=== PATIENT | male | born 1975 | race Caucasian/White ===

== ENCOUNTER 2016-12-23 11:21 | Emergency (ER) | payer OTHER, BC ==
[~2016-12-23] VITALS: Ht 182.9 cm; Wt 92.7 kg
[2016-12-23 11:21] VITALS: TEMP 36.7; Ht 182.9 cm; Wt 92.7 kg
--- NOTE | 2016-12-23 12:39 | DIAGNOSTIC IMAGING REPORT ---
LEFT ANKLE MIN 3 VIEWS ROUTINE, LEFT FOOT MIN 3 VIEWS ROUTINE HISTORY: 41 years-old Male left leg and foot pain, injury acute left lower extremity pain status post fall. Initial exam. COMPARISON: Left knee radiographs of same day TECHNIQUE: 3 views of the left foot and 3 views of the left ankle. FINDINGS: ANKLE: There is no acute fracture, dislocation or significant degenerative changes. There is mild spurring of both the medial and lateral malleoli inferiorly. No osteochondral defect. Mild soft tissue swelling is noted circumferentially about the ankle. Mild spurring of the calcaneus is seen within the expected regions of the plantar and Achilles insertion sites. FOOT: There is bony fusion of the fifth DIP joint. Mild first MTP joint degenerative changes noted. No acute fracture or dislocation. Negative for opaque foreign body. IMPRESSION: 1. No acute fracture or dislocation of the left foot or ankle. 2. Small enthesophytes about the calcaneus incidentally noted. 3. Mild degenerative changes about the first MTP joint. The above report was generated using voice recognition software. It may contain grammatical, syntax or spelling errors. Electronically signed by: Barrett Nuñez M.D. 12/23/2016 12:38 PM Dictated Date/Time: 12/23/2016 12:34 PM
--- NOTE | 2016-12-23 12:41 | DIAGNOSTIC IMAGING REPORT ---
LEFT KNEE 3 VIEWS HISTORY: 41 years-old Male left leg and foot pain, injury acute left knee pain status post fall. Initial exam. COMPARISON: None available. TECHNIQUE: 3 views of the left knee. FINDINGS: Mild medial compartment joint space narrowing is noted. There is minimal spurring of the marginal patella. There is no acute fracture or dislocation. Small joint effusion is noted. Negative for opaque foreign body. There is mild medial soft tissue swelling. IMPRESSION: 1. Small joint effusion and mild medial soft tissue swelling without acute fracture. 2. Minimal degenerative changes about the knee. The above report was generated using voice recognition software. It may contain grammatical, syntax or spelling errors. Electronically signed by: Barrett Nuñez M.D. 12/23/2016 12:39 PM Dictated Date/Time: 12/23/2016 12:38 PM
--- NOTE | 2016-12-23 13:08 | EMERGENCY ROOM VISIT NOTE ---
History First contact with patient: 11:25 Chief Complaint: LEG PAIN,LEG INJURY Stated Complaint: LEG AND FOOT PAIN History of Present Illness The patient is a 41 year old male who presents to the Emergency Room with complaints of left knee, ankle and foot pain. The patient states that at work last night, he slipped on melted ice and did a split. He complains of left knee pain, left ankle pain and pain in the left big toe. He has been able to bear weight. He rates his discomfort an 8/10. The patient has not used ice or any medications. He rates his discomfort an 8/10. He denies previous injuries to the leg. He denies numbness or weakness. Review of Systems A complete 6 point review of systems was reviewed with the patient with pertinent positives and negatives as per history of present illness. All else were negative. Social History Smoking Status: Former Smoker Current/Historical Medications No Active Prescriptions or Reported Meds Physical Exam Vital Signs Date Time Temp Pulse Resp B/P (MAP) Pulse Ox O2 Delivery O2 Flow Rate FiO2 12/23/16 13:13 98 18 156/98 94 12/23/16 11:21 36.7 85 16 167/91 98 Room Air Physical Exam VITALS: Vitals are noted on the nurse's note and reviewed by myself. Vital signs stable. GENERAL: This is a 41-year-old male, in no acute distress, nondiaphoretic, well- developed well-nourished. SKIN: No ecchymosis, edema or abrasions. MUSCULOSKELETAL: There is tenderness to palpation of the medial left knee. Full range of motion of the knee. Tenderness to palpation along the first metatarsal. Dorsalis pedis pulse 2+. NEURO: Patient was alert and oriented to person place and time. Normal sensation to light and sharp touch. Medical Decision & Procedures ER Provider Diagnostic Interpretation: LEFT KNEE 3 VIEWS FINDINGS: Mild medial compartment joint space narrowing is noted. There is minimal spurring of the marginal patella. There is no acute fracture or dislocation. Small joint effusion is noted. Negative for opaque foreign body. There is mild medial soft tissue swelling. IMPRESSION: 1. Small joint effusion and mild medial soft tissue swelling without acute fracture. 2. Minimal degenerative changes about the knee. LEFT ANKLE MIN 3 VIEWS ROUTINE, LEFT FOOT MIN 3 VIEWS ROUTINE FINDINGS: ANKLE: There is no acute fracture, dislocation or significant degenerative changes. There is mild spurring of both the medial and lateral malleoli inferiorly. No osteochondral defect. Mild soft tissue swelling is noted circumferentially about the ankle. Mild spurring of the calcaneus is seen within the expected regions of the plantar and Achilles insertion sites. FOOT: There is bony fusion of the fifth DIP joint. Mild first MTP joint degenerative changes noted. No acute fracture or dislocation. Negative for opaque foreign body. IMPRESSION: 1. No acute fracture or dislocation of the left foot or ankle. 2. Small enthesophytes about the calcaneus incidentally noted. 3. Mild degenerative changes about the first MTP joint. Medical Decision Differential diagnosis includes fracture, contusion, sprain, dislocation, among others. The patient is a 41-year-old male who presents today complaining of left leg pain. X-rays were obtained and do show a small effusion of the left knee but are otherwise unremarkable. Patient was placed on crutches and instructed to follow-up with orthopedics. Conservative measures were discussed. He verbalized understanding was discharged home in good condition. Medication Reconcilliation Current Medication List: was personally reviewed by ca Blood Pressure Screening Patient's blood pressure: Elevated blood pressure Blood pressure disposition: Elevated BP felt to be situational Impression Primary Impression: Injury of left knee Departure Information Dispostion Home / Self-Care Condition GOOD Prescriptions No Active Prescriptions or Reported Meds Referrals No Doctor, Assigned (PCP) Patient Instructions [facility] Additional Instructions Walk with the crutches for the next 3-4 days, then as needed for any difficulty walking. Follow-up with orthopedics. Contact your employee health for recommendations of who to follow-up with. Return to the emergency department with any worsening or new/concerning symptoms. Problem Qualifiers Primary Impression: Injury of left knee Encounter type: initial encounter Qualified Codes: S89.92XA - Unspecified injury of left lower leg, initial encounter
[2016-12-23 13:13] VITALS: BP 156/98; PULSE 98; O2SAT 94
== END 2016-12-23 13:15 | disposition home or self-care (01) ==
LOC: C.EDB 11:22 → C.EDD 13:15
DX: S89.92XA Unspecified injury of left lower leg, initial encounter (principal); W00.0XXA Fall on same level due to ice and snow, initial encounter; Z87.891 Personal history of nicotine dependence

== ENCOUNTER 2022-07-22 22:46 | Inpatient (IN) ==
--- NOTE | 2022-07-22 23:09 | Emergency Department Note ---
History of Present Illness General Chief complaint: Foot Injury/Pain Stated complaint: LEFT FOOT AND ANKLE PAIN Time Seen by Provider: 07/22/22 22:52 History of Present Illness This is a 47-year-old male presenting to the emergency department for evaluation of swelling to his left foot and left ankle over the past few days. Patient has not had fevers or chills. No known injury or trauma. He states is usually healthy and typically does not follow with a family doctor. Patient noticed a dry patch of skin on his left foot about 3 weeks ago, and peeled this off. This area has taken a long time to heal. He is not reportedly diabetic, but this wound has not had significant improvement over the past few weeks. Patient does not have recent travel history. He rates his discomfort a 5/10. Home Medications Medication Instructions Recorded Confirmed Type [id number] 250 2 tab PO BID PRN Migraine Headache 07/23/22 07/23/22 History mg-250 mg-65 mg tablet (Excedrin Migraine) Allergies Allergy/AdvReac Type Severity Reaction Status Date / Time No Known Allergies Allergy Mild Verified 07/23/22 00:28 Past Med/Surg History Medical History (Updated 07/23/22 @ 03:18 by Romeo Manuel PA-C) Diabetes Surgical History (Updated 07/23/22 @ 02:26 by Valeria Campos DO) History of hernia surgery infancy Family History (Updated 07/23/22 @ 02:23 by Valeria Campos DO) Mother Coronary heart disease CAD s/p CABG in her 30's Social History (Updated 07/23/22 @ 02:23 by Valeria Campos DO) Smoking Status: Current every day smoker Tobacco Type: E-cigarettes / Vaping Hx Alcohol Use: No Hx Substance Use: No Preferred Language: Divehi Feels Safe at Home: Yes Review of Systems A total of 10 systems reviewed and were otherwise negative Physical Exam Vital Signs Vital Signs - 24 hr 07/22/22 22:49 Temperature 36.5 C Temperature Source Temporal Artery Scan Pulse Rate 97 H Respiratory Rate 18 Respiratory Effort / Characteristics Non-Labored Spontaneous Respiratory Depth Normal Blood Pressure 168/92 H Blood Pressure Mean 117 Pulse Oximetry 97 Oxygen Delivery Method Room Air Sepsis Recent Fever Within 48 Hours No Sepsis New/Unexplained Change in Mental Status N/A Sepsis Action Taken by Nursing No Action Required VITALS: Vitals are noted on the nurse's note and reviewed by myself. Vital signs stable. GENERAL: Well-developed, well-nourished, white male, who is in no acute distress and resting comfortably. Patient is cooperative with the examination. HEAD: Normocephalic atraumatic. NECK: Supple without nuchal rigidity. No lymphadenopathy. No thyromegaly. Cervical spine is nontender. HEART: Regular rate and rhythm without murmurs gallops or rubs. LUNGS: Clear to auscultation bilaterally without wheezes, rales or rhonchi. No retractions or accessory muscle use. MUSCULOSKELETAL: There is a shallow ulceration to the left foot. This is on the plantar aspect of the foot essentially under the first MTP joint. There is erythema and edema to the lateral ankle and left calf area. No purulence identified. Neurovascular status appears intact. NEURO: Patient was alert and oriented to person place and time. CN II through XII grossly intact. Course Administered Medications Discontinued Medications Vancomycin HCl 1,750 mg/ (Sodium Chloride) 535 mls @ 200 mls/hr IV NOW ONE Stop: 07/23/22 03:09 Last Admin: 07/23/22 02:31 Dose: 200 mls/hr Documented By: ROSELYN Piperacillin Sod/Tazobactam Sod (Zosyn) 4.5 gm in 120 mls @ 240 mls/hr IV NOW ONE Stop: 07/23/22 00:58 Last Infusion: 07/23/22 01:11 Dose: 0 mls/hr Documented By: Admin: 07/23/22 00:41 Dose: 240 mls/hr Documented By: ROSELYN Medical Decision Making Differential Diagnosis Differential diagnosis includes: Etiologies such as osteomyelitis, sepsis, DVT, cellulitis, abscess, osteomyelitis, MRSA infection, DVT, necrotizing fasciitis, dermatitis, drug eruption, as well as others were entertained Laboratory Data 07/22/22 23:10 07/23/22 01:53 Lab Results 07/22/22 07/22/22 07/22/22 Range/Units 23:10 23:10 23:10 WBC 6.61 (4.8-10.8) K/ul RBC 5.73 (4.70-6.10) M/uL Hgb 16.0 (14.0-18.0) g/dl Hct 46.0 (42.0-52.0) % MCV 80.3 (80.0-100.0) fL MCH 27.9 (25.0-34.0) pg MCHC 34.8 (32.0-36.0) g/dL RDW Std Deviation 34.9 L (36.4-46.3) fL RDW Coeff of Gill 12.1 (11.5-14.5) % Plt Count 237 (130-400) K/uL MPV 10.2 (9.4-12.4) fL Immature Gran % (Auto) 0.3 % Neut % (Auto) 64.6 % Lymph % (Auto) 24.5 % [place] % (Auto) 8.3 % Eos % (Auto) 1.2 % Baso % (Auto) 1.1 % Neut # (Auto) 4.27 (1.40-6.50) K/uL Lymph # (Auto) 1.62 (1.2-3.4) K/uL [place] # (Auto) 0.55 (0.11-0.59) K/uL Eos # (Auto) 0.08 (0-0.50) K/uL Baso # (Auto) 0.07 (0-0.2) K/uL Immature Gran # (Auto) 0.02 (0.01-0.20) K/uL ESR 19 H (0-15) mm/hr Sodium 131 L (136-145) mmol/L Potassium TNP Chloride 96 L (98-107) mmol/L Carbon Dioxide 27 (21-32) mmol/L Anion Gap 8 (3-11) BUN 16 (6-23) mg/dl Creatinine 0.92 (0.6-1.4) mg/dl Est Cr Clr Drug Dosing 106.6 ml/min Est GFR ( Amer) 112.8 ml/min Est GFR (Non-Af Amer) 97.3 ml/min BUN/Creatinine Ratio 17.4 (10-20) Glucose 338 H* (70-99(Fasting)) mg/dl Lactate (0.4-2.0) mmol/L Calcium 8.9 (8.6-10.3) mg/dl Total Bilirubin 0.5 (0.2-1.0) mg/dl AST TNP ALT 23 (7-52) U/L Alkaline Phosphatase 54 (34-104) U/L C-Reactive Protein 0.95 H (0-0.5) mg/dl Total Protein 7.2 (6.0-8.3) gm/dl Albumin 4.1 (3.4-5.0) gm/dl Globulin 3.1 (2.5-4.0) gm/dl Albumin/Globulin Ratio 1.3 (0.9-2) SARS-CoV-2, RNA, NAAT (NEGATIVE) 07/22/22 07/23/22 07/23/22 Range/Units 23:10 00:44 01:04 WBC (4.8-10.8) K/ul RBC (4.70-6.10) M/uL Hgb (14.0-18.0) g/dl Hct (42.0-52.0) % MCV (80.0-100.0) fL MCH (25.0-34.0) pg MCHC (32.0-36.0) g/dL RDW Std Deviation (36.4-46.3) fL RDW Coeff of Gill (11.5-14.5) % Plt Count (130-400) K/uL MPV (9.4-12.4) fL Immature Gran % (Auto) % Neut % (Auto) % Lymph % (Auto) % [place] % (Auto) % Eos % (Auto) % Baso % (Auto) % Neut # (Auto) (1.40-6.50) K/uL Lymph # (Auto) (1.2-3.4) K/uL [place] # (Auto) (0.11-0.59) K/uL Eos # (Auto) (0-0.50) K/uL Baso # (Auto) (0-0.2) K/uL Immature Gran # (Auto) (0.01-0.20) K/uL ESR (0-15) mm/hr Sodium (136-145) mmol/L Potassium TNP Chloride (98-107) mmol/L Carbon Dioxide (21-32) mmol/L Anion Gap (3-11) BUN (6-23) mg/dl Creatinine (0.6-1.4) mg/dl Est Cr Clr Drug Dosing ml/min Est GFR ( Amer) ml/min Est GFR (Non-Af Amer) ml/min BUN/Creatinine Ratio (10-20) Glucose (70-99(Fasting)) mg/dl Lactate 1.5 (0.4-2.0) mmol/L Calcium (8.6-10.3) mg/dl Total Bilirubin (0.2-1.0) mg/dl AST TNP ALT (7-52) U/L Alkaline Phosphatase (34-104) U/L C-Reactive Protein (0-0.5) mg/dl Total Protein (6.0-8.3) gm/dl Albumin (3.4-5.0) gm/dl Globulin (2.5-4.0) gm/dl Albumin/Globulin Ratio (0.9-2) SARS-CoV-2, RNA, NAAT NEGATIVE (NEGATIVE) 07/23/22 Range/Units 01:53 WBC (4.8-10.8) K/ul RBC (4.70-6.10) M/uL Hgb (14.0-18.0) g/dl Hct (42.0-52.0) % MCV (80.0-100.0) fL MCH (25.0-34.0) pg MCHC (32.0-36.0) g/dL RDW Std Deviation (36.4-46.3) fL RDW Coeff of Gill (11.5-14.5) % Plt Count (130-400) K/uL MPV (9.4-12.4) fL Immature Gran % (Auto) % Neut % (Auto) % Lymph % (Auto) % [place] % (Auto) % Eos % (Auto) % Baso % (Auto) % Neut # (Auto) (1.40-6.50) K/uL Lymph # (Auto) (1.2-3.4) K/uL [place] # (Auto) (0.11-0.59) K/uL Eos # (Auto) (0-0.50) K/uL Baso # (Auto) (0-0.2) K/uL Immature Gran # (Auto) (0.01-0.20) K/uL ESR (0-15) mm/hr Sodium (136-145) mmol/L Potassium 3.8 Chloride (98-107) mmol/L Carbon Dioxide (21-32) mmol/L Anion Gap (3-11) BUN (6-23) mg/dl Creatinine (0.6-1.4) mg/dl Est Cr Clr Drug Dosing ml/min Est GFR ( Amer) ml/min Est GFR (Non-Af Amer) ml/min BUN/Creatinine Ratio (10-20) Glucose (70-99(Fasting)) mg/dl Lactate (0.4-2.0) mmol/L Calcium (8.6-10.3) mg/dl Total Bilirubin (0.2-1.0) mg/dl AST 20 ALT (7-52) U/L Alkaline Phosphatase (34-104) U/L C-Reactive Protein (0-0.5) mg/dl Total Protein (6.0-8.3) gm/dl Albumin (3.4-5.0) gm/dl Globulin (2.5-4.0) gm/dl Albumin/Globulin Ratio (0.9-2) SARS-CoV-2, RNA, NAAT (NEGATIVE) Imaging Data Radiologist's Impression: Venous Doppler Study 07/22/22 22:57 Exam(s): US VENOUS LEFT LOWER EXTREMITY EXAM: US Duplex Left Lower Extremity Veins CLINICAL HISTORY: Reason for exam: LLE swelling, infx vs clot. TECHNIQUE: Real-time duplex ultrasound scan of the left lower extremity veins integrating B-mode two-dimensional vascular structure, Doppler spectral analysis, color flow Doppler imaging and compression. COMPARISON: None. FINDINGS: Deep veins: Unremarkable. No DVT in the visualized common femoral, femoral, proximal deep femoral or popliteal veins. The veins demonstrate normal color flow, are normally compressible, with normal phasic flow and/or augmentation response. Superficial veins: Unremarkable. No thrombus in the visualized great saphenous vein. Soft tissues: No acute findings. No popliteal cyst. IMPRESSION: No ultrasonographic evidence of deep venous thrombosis involving the left lower extremity. Electronically signed by: Mariely Young MD 07/23/22 02:14 AM [facility] Narrative Physical exam and history were performed. Nursing notes, EMR, and Medication List were personally reviewed. No social concerns were identified as barriers to patients care. Patient appears to have swelling to his left foot and ankle area. This is extending approximately as well. On exam he does have ulceration to the left foot, which increases my concern for possible infection. Clinically he could have DVT. IV access was established and blood work was obtained. X-rays of the foot and ultrasound of the left leg were performed. X-ray was reviewed by myself and does not show obvious acute process. Ultrasound was informally reviewed by myself and read by radiology showing no acute DVT. Patient's blood work is as above and was reviewed. He does not have a significantly elevated white blood cell count, gross anemia, bandemia, or significant electrolyte imbalance. Sed rate and CRP are both slightly elevated. Lactic is negative. Unfortunately the patient's glucose is 338, indicating a new diagnosis of diabetes. He does not have an anion gap, and I do not suspect DKA. This is likely been ongoing for some time and not diagnosed as the patient has not been following with the family doctor. Remaining labs are fairly unremarkable with blood cultures pending. Overall the patient does not appear well for discharge home. At this point he does have uncontrolled diabetes with an infected diabetic foot ulcer. He was given vancomycin and Zosyn here in the ER empirically. Case was discussed with the on-call [facility] hospitalist, who agreed to evaluate the patient here in the ER. Please see their dictation for further patient course, plan, and disposition. The chart was completed utilizing [employer] Voice Recognition Software. Grammatical errors, random word insertions, pronoun errors, and incomplete sentences are an occasional consequence of this system due to software limitations, ambient noise, and hardware issues. Any formal questions or concerns about the content, text, or information contained within the body of this dictation should be directly addressed to the provider for clarification. . Impression & Plan Foot ulcer, Diabetes Discharge Plan Visit Data Chief Complaint: Foot Injury/Pain Stated Complaint: LEFT FOOT AND ANKLE PAIN ED Provider: Rob Knowles ED Midlevel Provider: Romeo Manuel Discharge Problem: Foot ulcer, Diabetes Forms Stand Alone Forms: My [facility] Any.DO Prescriptions Prescriptions: No Action Excedrin Migraine 250-250-65 mg Tablet 2 tab PO BID PRN (Reason: Migraine Headache) Referrals Referrals: PCP,NO [Primary Care Provider] -
[2022-07-22 23:34] LABS: Basophils # (auto) 0.07 K/uL (0-0.2); Basophils % (auto) 1.1 %; Eosinophils # (auto) 0.08 K/uL (0-0.50); Eosinophils % (auto) 1.2 %; Immature Granulocytes # (auto) 0.02 K/uL (0.01-0.20); Immature Granulocytes % (auto) 0.3 %; Lymphocytes # (auto) 1.62 K/uL (1.2-3.4); Lymphocytes % (auto) 24.5 %; Mean Corpuscular Hemoglobin 27.9 pg (25.0-34.0); Mean Corpuscular Hgb Conc 34.8 g/dL (32.0-36.0); Mean Corpuscular Volume 80.3 fL (80.0-100.0); Mean Platelet Volume 10.2 fL (9.4-12.4); Monocytes # (auto) 0.55 K/uL (0.11-0.59); Monocytes % (auto) 8.3 %; Neutrophils # (auto) 4.27 K/uL (1.40-6.50); Neutrophils % (auto) 64.6 %; Platelet Count 237 K/uL (130-400); RDW Coefficient of Variation 12.1 % (11.5-14.5); RDW Standard Deviation 34.9 fL (36.4-46.3); Red Blood Count 5.73 M/uL (4.70-6.10); White Blood Count 6.61 K/ul (4.8-10.8)
[2022-07-23 00:27] LABS: Alanine Aminotransferase 23 U/L (7-52); Albumin Globulin Ratio 1.3 (0.9-2); Albumin Level 4.1 gm/dl (3.4-5.0); Alkaline Phosphatase 54 U/L (34-104); Anion Gap 8 (3-11); BUN Creatinine Ratio 17.4 (10-20); Bilirubin,Total 0.5 mg/dl (0.2-1.0); Blood Urea Nitrogen 16 mg/dl (6-23); C Reactive Protein 0.95 mg/dl (0-0.5); Calcium 8.9 mg/dl (8.6-10.3); Carbon Dioxide 27 mmol/L (21-32); Chloride 96 mmol/L (98-107); Creatinine Clr Calc Pharmacy 106.6 ml/min; Est GFR (African American) 112.8 ml/min; Est GFR (Non-African American) 97.3 ml/min; Globulin 3.1 gm/dl (2.5-4.0); Glucose 338 mg/dl (70-99(Fasting)); Sodium 131 mmol/L (136-145); Total Protein 7.2 gm/dl (6.0-8.3)
[2022-07-23] MEDS ORDERED: VANCOMYCIN CONSULT ACTIVE PRN (00:29)
[2022-07-23] MEDS ORDERED: PIPERACILLIN/TAZOBACTAM 4.5 GM/120 ML BAG IV ONE (00:29)
[2022-07-23] MEDS ORDERED: VANCOMYCIN HCL 1,750 MG in SODIUM CHLORIDE 0.9% 500 ML IV ONE (00:29)
--- NOTE | 2022-07-23 02:14 | Ultrasound Report ---
Exam(s): US VENOUS LEFT LOWER EXTREMITY EXAM: US Duplex Left Lower Extremity Veins CLINICAL HISTORY: Reason for exam: LLE swelling, infx vs clot. TECHNIQUE: Real-time duplex ultrasound scan of the left lower extremity veins integrating B-mode two-dimensional vascular structure, Doppler spectral analysis, color flow Doppler imaging and compression. COMPARISON: None. FINDINGS: Deep veins: Unremarkable. No DVT in the visualized common femoral, femoral, proximal deep femoral or popliteal veins. The veins demonstrate normal color flow, are normally compressible, with normal phasic flow and/or augmentation response. Superficial veins: Unremarkable. No thrombus in the visualized great saphenous vein. Soft tissues: No acute findings. No popliteal cyst. IMPRESSION: No ultrasonographic evidence of deep venous thrombosis involving the left lower extremity. Electronically signed by: Mariely Young MD 07/23/22 02:14 AM
--- NOTE | 2022-07-23 02:34 | History & Physical Report ---
Date of Service July 23, 2022 Assessment & Plan (1) Foot ulcer: Plan: 47yo male presenting with foot ulcer over left 1st MTP joint. Patient is afebrile, HD stable and nontoxic in appearance. Mild elevation in ESR=19, CRP=0.95. Patient with newly diagnosed diabetes given elevated blood sugar of 338. Suspect diabetic foot ulcer. Patient does admit to some numbness in his feet. -Admit to medical -Zosyn + Daptomycin for now -Foot X-ray with no obvious bony degradation per my assessment - awaiting formal radiology read to help determine possible osteomyelitis -Wound care (2) Diabetes: Plan: Elevated blood [id number]. Patient does admit to some polydipsia and polyuria at home. He does not routinely follow with a physician. -Check HgbA1C -Check lipid panel -Consult diabetes education -Lantus 8u BID -ISS CF 50, CR 17 -Patient will need to establish with a PCP for ongoing care. I briefly discussed with him that he will need to followup routinely with PCP as well as Ophthalmology and Podiatry. Given his family history of premature CAD (mother with reported CABG in her 30's) - patient should be considered for baseline stress testing outpatient. He denies chest pain at presnt. F/E/N - Heplock. Electrolytes WNL - sodium corrects to normal for degree of hyperglycemia. CC diet as tolerated Ppx - Low risk for DVT, encourage ambulation Code - Full Dispo -Admit to medical History of Present Illness Chief Complaint: Foot ulcer Primary Care Provider: NO PCP Delfino Mike is a pleasant 47yo male with no significant past medical history presenting with left foot ulcer and newly diagnosed DM. Patient does not routinely follow with a PCP. He reports that 3 weeks ago he pulled a piece of dry skin from the ball of his left foot. He states that he had a lot of bleeding and some discomfort. Three days ago he noticed increased pain and swelling in his foot and left ankle as well as development of a red spot above his ankle yesterday. He has some ongoing discomfort on the plantar surface of his left foot. Otherwise, no complaints. He denies fever, chills, cough, SOB, chest pain. Denies abdominal pain, nausea, vomiting, diarrhea or constipation. He does admit to some polydipsia and polyuria. No visual changes. Weight has been stable. In the ER he is afebrile, HD stable, non-toxic in appearance. Blood sugar found to be 338 ER Course: Vancomycin Zosyn Allergies Allergy/AdvReac Type Severity Reaction Status Date / Time No Known Allergies Allergy Mild Verified 07/23/22 00:28 Home Medications Medication Instructions Recorded Confirmed Type [id number]-[id number]-[id number] 250 2 tab PO BID PRN Migraine Headache 07/23/22 07/23/22 History mg-250 mg-65 mg tablet (Excedrin Migraine) Past Med/Surg History Medical History (Updated 07/23/22 @ 02:26 by Valeria Campos DO) Diabetes Surgical History (Updated 07/23/22 @ 02:26 by Valeria Campos DO) History of hernia surgery infancy Family History (Updated 07/23/22 @ 02:23 by Valeria Campos DO) Mother Coronary heart disease CAD s/p CABG in her 30's Social History (Updated 07/23/22 @ 02:23 by Valeria Campos DO) Smoking Status: Current every day smoker Tobacco Type: E-cigarettes / Vaping Hx Alcohol Use: No Hx Substance Use: No Preferred Language: Libyan Feels Safe at Home: Yes Review of Systems Review of Systems: All systems reviewed & are unremarkable except as noted in HPI & below Physical Exam Physical Exam: General: patient resting comfortably, NAD, non-toxic in appearance, AA&O x 4 Skin: warm, dry, intact, no rashes or lesions HEENT: NC/AT, PERRL, EOMI, anicteric sclera, conjunctiva without injection, external ear normal to inspection and nontender, nares patent, moist mucus membranes, dentition intact, no oropharyngeal lesions, neck supple, trachea midline, no LAD, no thyromegaly, no JVD Heart: +S1/S2, regular, no m/r/g Lungs: equal air entry bilaterally, no rales/rhonchi/wheezes Abd: +BS, soft, NT/ND, no masses/organomegaly/ascites Ext: warm, 2+ pulses in UE/LE bilaterally, no clubbing/cyanosis or edema Neuro: nonfocal, patient AA&O x 4, speech intact, no facial droop, moving all e xtremities on command with equal strength 5/5 LLE - redness and warmth of the left ankle. No crepitus, bullae or lymphangitis Shallow based ulcer on plantar surface of left foot over 1st MTP joint. No drainage or purulence Results & Data Results & Data Vital Signs (Past 12 Hours) Vital Signs Temp Pulse Resp BP Pulse Ox O2 Del Method 07/22/22 22:49 36.5 C 97 H 18 168/92 H 97 Room Air Laboratory Results Laboratory Results WBC 6.61 K/ul (4.8-10.8) 07/22/22 23:10 RBC 5.73 M/uL (4.70-6.10) 07/22/22 23:10 Hgb 16.0 g/dl (14.0-18.0) 07/22/22 23:10 Hct 46.0 % (42.0-52.0) 07/22/22 23:10 MCV 80.3 fL (80.0-100.0) 07/22/22 23:10 MCH 27.9 pg (25.0-34.0) 07/22/22 23:10 MCHC 34.8 g/dL (32.0-36.0) 07/22/22 23:10 RDW Std Deviation 34.9 fL (36.4-46.3) L 07/22/22 23:10 RDW Coeff of Gill 12.1 % (11.5-14.5) 07/22/22 23:10 Plt Count 237 K/uL (130-400) 07/22/22 23:10 MPV 10.2 fL (9.4-12.4) 07/22/22 23:10 Immature Gran % (Auto) 0.3 % 07/22/22 23:10 Neut % (Auto) 64.6 % 07/22/22 23:10 Lymph % (Auto) 24.5 % 07/22/22 23:10 Hutchinson % (Auto) 8.3 % 07/22/22 23:10 Eos % (Auto) 1.2 % 07/22/22 23:10 Baso % (Auto) 1.1 % 07/22/22 23:10 Neut # (Auto) 4.27 K/uL (1.40-6.50) 07/22/22 23:10 Lymph # (Auto) 1.62 K/uL (1.2-3.4) 07/22/22 23:10 Hutchinson # (Auto) 0.55 K/uL (0.11-0.59) 07/22/22 23:10 Eos # (Auto) 0.08 K/uL (0-0.50) 07/22/22 23:10 Baso # (Auto) 0.07 K/uL (0-0.2) 07/22/22 23:10 Immature Gran # (Auto) 0.02 K/uL (0.01-0.20) 07/22/22 23:10 ESR 19 mm/hr (0-15) H 07/22/22 23:10 Sodium 131 mmol/L (136-145) L 07/22/22 23:10 Potassium TNP 07/23/22 00:44 Chloride 96 mmol/L (98-107) L 07/22/22 23:10 Carbon Dioxide 27 mmol/L (21-32) 07/22/22 23:10 Anion Gap 8 (3-11) 07/22/22 23:10 BUN 16 mg/dl (6-23) 07/22/22 23:10 Creatinine 0.92 mg/dl (0.6-1.4) 07/22/22 23:10 Est Cr Clr Drug Dosing 106.6 ml/min 07/22/22 23:10 Est GFR ( Amer) 112.8 ml/min 07/22/22 23:10 Est GFR (Non-Af Amer) 97.3 ml/min 07/22/22 23:10 BUN/Creatinine Ratio 17.4 (10-20) 07/22/22 23:10 Glucose 338 mg/dl (70-99(Fasting)) H* 07/22/22 23:10 Lactate 1.5 mmol/L (0.4-2.0) 07/22/22 23:10 Calcium 8.9 mg/dl (8.6-10.3) 07/22/22 23:10 Total Bilirubin 0.5 mg/dl (0.2-1.0) 07/22/22 23:10 AST TNP 07/23/22 00:44 ALT 23 U/L (7-52) 07/22/22 23:10 Alkaline Phosphatase 54 U/L (34-104) 07/22/22 23:10 C-Reactive Protein 0.95 mg/dl (0-0.5) H 07/22/22 23:10 Total Protein 7.2 gm/dl (6.0-8.3) 07/22/22 23:10 Albumin 4.1 gm/dl (3.4-5.0) 07/22/22 23:10 Globulin 3.1 gm/dl (2.5-4.0) 07/22/22 23:10 Albumin/Globulin Ratio 1.3 (0.9-2) 07/22/22 23:10 SARS-CoV-2, RNA, NAAT NEGATIVE (NEGATIVE) 07/23/22 01:04 Impressions Venous Doppler Study 07/22/22 22:57 Exam(s): US VENOUS LEFT LOWER EXTREMITY EXAM: US Duplex Left Lower Extremity Veins CLINICAL HISTORY: Reason for exam: LLE swelling, infx vs clot. TECHNIQUE: Real-time duplex ultrasound scan of the left lower extremity veins integrating B-mode two-dimensional vascular structure, Doppler spectral analysis, color flow Doppler imaging and compression. COMPARISON: None. FINDINGS: Deep veins: Unremarkable. No DVT in the visualized common femoral, femoral, proximal deep femoral or popliteal veins. The veins demonstrate normal color flow, are normally compressible, with normal phasic flow and/or augmentation response. Superficial veins: Unremarkable. No thrombus in the visualized great saphenous vein. Soft tissues: No acute findings. No popliteal cyst. IMPRESSION: No ultrasonographic evidence of deep venous thrombosis involving the left lower extremity. Electronically signed by: Mariely Young MD 07/23/22 02:14 AM PG Care Time/CCT Total # of Minutes Spent Total Time Spent with Patient: Total time spent is greater than 50% in coordination of care (as documented) at patient's floor/unit and/or counseling patient: Coding Level of Care Code 06291 INT INP/OBS CARE 2/55MIN Diagnoses Foot ulcer L97.509 Diabetes E11.9
[2022-07-23 02:52] LABS: Potassium 3.8 mmol/L (3.5-5.1)
[2022-07-23] MEDS ORDERED: ACETAMINOPHEN 325 MG TAB PO PRN (03:45)
[2022-07-23] MEDS ORDERED: GLUCOSE 40% GEL 15 GM TUBE PO PRN (03:45)
[2022-07-23] MEDS ORDERED: GLUCOSE 10 TAB/TUBE PO PRN (03:45)
[2022-07-23] MEDS ORDERED: DEXTROSE 50% 50 ML SYRINGE IV PRN (03:45)
[2022-07-23] MEDS ORDERED: CARBOHYDRATES FOR HYPOGLYCEMIA PO PRN (03:45)
[2022-07-23] MEDS ORDERED: ONDANSETRON INJ 2 MG/ML 2 ML VIAL IV PRN (03:45)
[2022-07-23] MEDS ORDERED: GLUCAGON FOR INJ 1 MG VIAL SQ PRN (03:45)
[2022-07-23] MEDS: LACTATED RINGER'S 1,000 ML IV SCH ×2 (04:00→14:29)
[2022-07-23] MEDS: INSULIN ASPART PER UNIT CHARGE SC SCH ×5 (04:10→21:39)
[2022-07-23 04:40] LABS: Chol HDL Ratio 7.2 (0-5)
[2022-07-23] MEDS: PIPERACILLIN/TAZOBACTAM 3.375 GM in DEXTROSE 5% 100 ML IV SCH ×3 (06:06→21:13)
--- NOTE | 2022-07-23 07:35 | XRay Report ---
XR foot LT min 3V routine CLINICAL HISTORY: swelling, ulceration at ball of foot COMPARISON: Left foot radiographs December 23, 2016. FINDINGS: Alignment of the left foot is anatomic. Tarsometatarsal joints are intact. There is no acu te fracture. There is no radiographic evidence for acute osteomyelitis. 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 There is posterior and plantar canal spurring. IMPRESSION: 1. No acute fracture or dislocation within the left foot. 2. No radiographic evidence for acute osteomyelitis. ACT 112: Negative or not required by law. Electronically signed by: Perez Barrera M.D. 07/23/2022 7:34 AM
[2022-07-23 08:50] LABS: Estimated Average Glucose 329 mg/dl; Hemoglobin A1C 13.1 % (4.5-5.6)
[2022-07-23] MEDS: LANTUS PER UNIT CHARGE SQ SCH ×2 (08:50→21:39)
[2022-07-23] MEDS: DAPTOmycin 300 MG in SYRINGE 0 ML IV SCH (09:08)
--- NOTE | 2022-07-23 15:38 | Hospitalist Progress Note ---
Date of Service July 23, 2022 Assessment & Plan (1) Foot ulcer: Plan: Superficial ulceration left forefoot. Uncertain if this is actually infected or not. Podiatry consultation requested. He remains on intravenous Zosyn and daptomycin. This will be switched to oral antibiotic at discharge. No evidence of underlying osteomyelitis (2) Diabetes: Plan: Type II. New diagnosis for this patient. Hemoglobin A1c is 13.1. He is now on Lantus twice daily basal insulin therapy. Hopefully this can be switched to oral medication by his PCP as an outpatient. Lipid profile should improve with diabetic control. This can be repeated at a later date Plan Home soon on oral antibiotic and insulin therapy. Hopefully tomorrow, July 24 Admission and Anticipated Discharge Date Admission Date: July 23, 2022 Subjective Alert and oriented. The superficial diabetic foot ulcer left forefoot appears to be over a callus. Podiatry consultation requested. Continuous IV fluids have been discontinued. Insulin therapy is new. Hemoglobin A1c is 13.1. Left lower extremity venous Doppler study negative for DVT. Review of Systems Review of Systems: Constitutional-no fever or chills ENT-no blurred vision, no double vision, no epistaxis, no sore throat Respiratory-no cough, no wheezing, no shortness of breath Cardiac-no palpitations, no chest pain, no syncope GI-no nausea, vomiting, diarrhea, melena, hematochezia -no urinary retention, no urinary incontinence, no dysuria, no hematuria Musculoskeletal-no joint pain, no muscle tenderness Skin-no bruising, no rashes, no pruritus Neuro-no isolated weakness, no paresthesia, no weakness Psych-no depression, no anxiety Physical Exam Physical Exam: General-alert and oriented x3, no fevers, no chills HEENT-head atraumatic and normocephalic, pupils equal and reactive to light, extraocular muscles intact Neck-no lymphadenopathy or thyromegaly, trachea midline Chest-clear to auscultation percussion. No rales wheezing or rhonchi Cardiac-regular rate and rhythm, normal S1 and S2 Abdomen-normal bowel sounds, nontender, no hepatosplenomegaly Extremities-no cyanosis, clubbing, or edema. Superficial ulceration on a callus left forefoot Neuro-cranial nerves II through XII intact, motor and sensory function within normal limits, strength symmetrical , no focal deficits Psych-normal affect, normal mood Results & Data Results & Data Vital Signs (Past 12 Hours) Vital Signs Temp Pulse Resp BP Pulse Ox O2 Del Method 07/23/22 07:39 36.7 C 75 16 128/75 94 Room Air 07/23/22 03:35 36.9 C 82 16 167/94 H 96 Room Air 07/23/22 04:28 36.9 C 82 16 167/94 H 96 Room Air Laboratory Results 07/22/22 23:10 07/23/22 01:53 PG Care Time/CCT Total # of Minutes Spent Total Time Spent with Patient: Total time spent is greater than 50% in coordination of care (as documented) at patient's floor/unit and/or counseling patient: Coding Level of Care Code 26990 SUB INP/OBS CARE 3/50MIN Diagnoses Foot ulcer L97.509 Diabetes E11.9
--- NOTE | 2022-07-23 22:23 | Orthopedic Consultation ---
Date of Consultation July 23, 2022 Assessment & Plan (1) Foot ulcer: (2) Diabetes: Patient seen, evaluated, and treated. A thorough evaluation of the wound was done in detail. X-rays images reviewed. No OM. Off-loading is a critical part of this patient's management. Wound cleansed with Betadine followed by normal saline. To offload or remove pressure to the wound is essential. Will continue to follow while Patient is in house. Possible debridement at bedside. Thank you for allowing me to participate in the care of this Patient. History of Present Illness Attending Physician: Lokesh Cope MD History of Present Illness Patient is a 47yo male seen at bedside for left foot ulcer. Patient has no significant past medical history. He is recently diagnosed with type II diabetes. Patient notes weeks ago he pulled a piece of dry skin from the ball of his left foot. He states that he had a lot of bleeding and some discomfort. Three days ago he noticed increased pain and swelling in his foot and left ankle as well as development of a red spot above his ankle yesterday. Patient then presented to [facility] ED. Allergies Allergy/AdvReac Type Severity Reaction Status Date / Time No Known Allergies Allergy Mild Verified 07/23/22 00:28 Home Medications Medication Instructions Recorded Confirmed Type npjeowc-ubhuuaixsiqsa-pokawpof 250 2 tab PO BID PRN Migraine Headache 07/23/22 07/23/22 History mg-250 mg-65 mg tablet (Excedrin Migraine) Patient History Medical History Diabetes Surgical History History of hernia surgery infancy Family History Mother Coronary heart disease CAD s/p CABG in her 30's Social History Smoking Status: Former smoker Tobacco Type: E-cigarettes / Vaping Cigarettes Per Day: 1/2 pack/day; Smoking End Date: ended smoking cigarettes 17 years ago; Do You Dip or Chew Tobacco: Yes (currently using chew tobacco); Hx Alcohol Use: Yes Hx Substance Use: No Preferred Language: Portuguese Communication Ability: Effective [place] Operator Required: No Beliefs That Will Affect Care: None Current Living Situation: Family Current Living Situation Comment: Lives at home with step father Feels Safe at Home: Yes Safety Concerns: Feels Safe At This Time Assistive Devices: None Review of Systems Review of Systems: All systems reviewed & are unremarkable except as noted in HPI & below Physical Exam Constitutional: well developed and well nourished Neck: normal visual inspection Respiratory: normal respiratory effort Cardiovascular: Rate/Rhythm: regular rate and regular rhythm Musculoskeletal: No gross deformities Skin: Wound location:Right submet 5 Wound base color and depth:Full-thickness intosubcutaneoustissue Wound size (cm):0.5 x 0.7x 0.3 cm Odor:No malodor Drainage:Minimal serous Undermining:None Borders:Hyperkeratotic Neurologic: Decreased epicritic sensation Psychiatric: A+Ox3, euthymic affect Results & Data Vital Signs (Past 12 Hours) Vital Signs Temp Pulse Resp BP Pulse Ox O2 Del Method 07/23/22 20:32 36.8 C 83 16 143/92 H 95 Room Air 07/23/22 16:33 150/85 H 07/23/22 15:08 36.8 C 83 16 159/90 H 93 Room Air Diagnostic Findings IMPRESSION: 1. No acute fracture or dislocation within the left foot. 2. No radiographic evidence for acute osteomyelitis.
[2022-07-24] MEDS: PIPERACILLIN/TAZOBACTAM 3.375 GM in DEXTROSE 5% 100 ML IV SCH (06:03)
[2022-07-24 08:00] LABS: Basophils # (auto) 0.07 K/uL (0-0.2); Basophils % (auto) 1.4 %; Eosinophils % (auto) 1.9 %; Hematocrit (blood only) 46.4 % (42.0-52.0); Hemoglobin 15.9 g/dl (14.0-18.0); Immature Granulocytes # (auto) 0.02 K/uL (0.01-0.20); Immature Granulocytes % (auto) 0.4 %; Lymphocytes # (auto) 1.91 K/uL (1.2-3.4); Lymphocytes % (auto) 36.9 %; Mean Corpuscular Hemoglobin 27.1 pg (25.0-34.0); Mean Corpuscular Hgb Conc 34.3 g/dL (32.0-36.0); Mean Corpuscular Volume 79.2 fL (80.0-100.0); Monocytes # (auto) 0.53 K/uL (0.11-0.59); Monocytes % (auto) 10.2 %; Neutrophils # (auto) 2.55 K/uL (1.40-6.50); Neutrophils % (auto) 49.2 %; Platelet Count 201 K/uL (130-400); RDW Coefficient of Variation 12.3 % (11.5-14.5); RDW Standard Deviation 35.1 fL (36.4-46.3); Red Blood Count 5.86 M/uL (4.70-6.10); White Blood Count 5.18 K/ul (4.8-10.8)
[2022-07-24] MEDS: DAPTOmycin 300 MG in SYRINGE 0 ML IV SCH (08:22)
[2022-07-24 08:33] LABS: BUN Creatinine Ratio 22.1 (10-20); Calcium 8.5 mg/dl (8.6-10.3); Creatinine Clr Calc Pharmacy 127.4 ml/min; Est GFR (African American) 123.5 ml/min; Est GFR (Non-African American) 106.6 ml/min
[2022-07-24] MEDS: INSULIN ASPART PER UNIT CHARGE SC SCH ×2 (08:35→12:30)
[2022-07-24] MEDS: LANTUS PER UNIT CHARGE SQ SCH (08:37)
--- NOTE | 2022-07-24 13:11 | Discharge Summary ---
Date of Service July 24, 2022 Admission HPI Per Admitting Provider Delfino Mike is a pleasant 47yo male with no significant past medical history presenting with left foot ulcer and newly diagnosed DM. Patient does not routinely follow with a PCP. He reports that 3 weeks ago he pulled a piece of dry skin from the ball of his left foot. He states that he had a lot of bleeding and some discomfort. Three days ago he noticed increased pain and swelling in his foot and left ankle as well as development of a red spot above his ankle yesterday. He has some ongoing discomfort on the plantar surface of his left foot. Otherwise, no complaints. He denies fever, chills, cough, SOB, chest pain. Denies abdominal pain, nausea, vomiting, diarrhea or constipation. He does admit to some polydipsia and polyuria. No visual changes. Weight has been stable. In the ER he is afebrile, HD stable, non-toxic in appearance. Blood sugar found to be 338 ER Course: Vancomycin Zosyn Principal Diagnosis Newly diagnosed and uncontrolled type 2 diabetes, superficial diabetic left forefoot ulceration Discharge Exam General-alert and oriented x3, no fevers, no chills HEENT-head atraumatic and normocephalic, pupils equal and reactive to light, extraocular muscles intact Neck-no lymphadenopathy or thyromegaly, trachea midline Chest-clear to auscultation percussion. No rales wheezing or rhonchi Cardiac-regular rate and rhythm, normal S1 and S2 Abdomen-normal bowel sounds, nontender, no hepatosplenomegaly Extremities-no cyanosis, clubbing, or edema. Superficial ulceration on a callus left forefoot. Does not appear to be deeply infected Neuro-cranial nerves II through XII intact, motor and sensory function within normal limits, strength symmetrical , no focal deficits Psych-normal affect, normal mood Discharge Data Allergies Allergy/AdvReac Type Severity Reaction Status Date / Time No Known Allergies Allergy Mild Verified 07/23/22 00:28 Consultations 07/23/22 02:17 ED Decision to Admit Stat 07/23/22 13:50 Consult Podiatry Routine Ordered Studies 07/22/22 22:57 US venous duplex leg [US venous doppler LE LT] Stat Hospital Course (1) Foot ulcer: Superficial ulceration left forefoot. Uncertain if this is actually infected or not. Podiatry consultation appreciated. He will need outpatient follow-up. Treated while hospitalized with intravenous Zosyn and daptomycin. Home on Augmentin. No evidence of underlying osteomyelitis (2) Diabetes: Type II. New diagnosis for this patient. Hemoglobin A1c is 13.1. He is now on Lantus twice daily basal insulin therapy. Hopefully this can be switched to oral medication by his PCP as an outpatient. Lipid profile should improve with diabetic control. This can be repeated at a later date Plan Discharge to home today, July 24. Off work until further notice Total Time Total Time Spent Total Time Spent (In Minutes): 40 minutes Discharge Plan Discharge Items Patient Disposition: Home - Self-Care Reason For Visit: FOOT INFECTION, NEW DIABETES Discharge Diagnosis: Newly diagnosed uncontrolled type 2 diabetes, diabetic left plantar foot ulcer Activity: As commented below Activity Comment: Stay off work until further notice Weightbearing: Left partial Weightbearing Comment: Partial weight bearing in off loading surgical shoe Non-emergency contact: Primary Care Provider Call non-emergency contact if: you have any medication questions Follow-up/Referrals: PCP,NO [Primary Care Provider] - Diet: Carb Consistent or DM2 and Heart Healthy Addtl Attending Provider Instructions: Take Lantus twice daily, before breakfast and supper. Check sugar levels twice daily before each insulin dose. Keep a record and show your doctor. Remain off work until further notice Pending Studies at Discharge: No Stand-Alone Forms: My [employer], Smoking Cessation, Work/School Release Medications and DC Order Prescriptions: New amoxicillin-pot clavulanate 875-125 mg Tablet 1 tab PO BIDM Qty: 20 0RF insulin glargine [Lantus Solostar U-100 Insulin] 100 unit/mL (3 mL) insulin pen 12 unit subcut BID Qty: 15 0RF Continued Excedrin Migraine 250-250-65 mg Tablet 2 tab PO BID PRN (Reason: Migraine Headache) Discharge Orders: Discharge Order (Routine); Ordered 07/24/22 Ordered By: Lokesh Cope Admission Data Admit Date/Time: 07/23/22 02:06 Attending Provider: Lokesh Cope Admit Provider: Valeria Campos Primary Care Provider: PCP,NO Other Providers: Valeria Campos ; Abdi Peterson Coding Level of Care Code 72444 INP/OBS DISCH >30 MIN Diagnoses Foot ulcer L97.509 Diabetes E11.9
[2022-07-24] MEDS ORDERED: AMOXICILLIN/CLAVULANATE 875 MG TAB PO SCH (17:00)
[2022-07-24] MEDS ORDERED: LANTUS PER UNIT CHARGE SQ SCH (21:00)
== END 2022-07-24 15:25 | disposition home or self-care (01) | DRG 639 ==
LOC: ED 22:46 → 3W 07-23 02:06 → SUATTDRO 07-23 02:06 → 3W 07-23 03:15

== ENCOUNTER 2025-01-27 08:43 | Inpatient (IN) ==
--- NOTE | 2025-01-27 09:26 | Emergency Department Note ---
History of Present Illness General Chief complaint: Neuro Symptoms/Deficit Stated complaint: R ARM AND LEG NUMB Time Seen by Provider: 01/27/25 08:54 Source: patient Mode of arrival: ambulatory Limitations: no limitations History of Present Illness Patient is a 49-year-old male with history of diabetes, hypertension, hyperlipidemia as well as diabetic neuropathy who presents for numbness and tingling of the right arm as well as weakness of the right leg that started around 2300 Friday night. He says he had similar symptoms in the past that lasted few hours and resolved with a note however he has never lasted this long before. Denies any visual changes, speech changes, dizziness, lightheadedness, shortness of breath, abdominal pain, nausea, vomiting. Home Medications Medication Instructions Recorded Confirmed Type pvjzsyw-vughjxrvzlfse-lgekhics 250 2 tab PO BID PRN Migraine Headache 07/23/22 01/27/25 History mg-250 mg-65 mg tablet (Excedrin Migraine) pen needle, diabetic 32 gauge x #100 ea 10/24/22 12/06/24 Rx 5/32" (BD Maritza 2nd Gen Pen Needle) blood sugar diagnostic (OneTouch #100 ea 01/29/24 12/06/24 Rx Verio test strips) lancets 33 gauge #100 ea 01/29/24 12/06/24 Rx metformin 500 mg tablet,extended 1,000 mg (2 x 500 mg) PO BID #120 10/29/24 01/27/25 Rx release 24 hr tabs atorvastatin 10 mg tablet 10 mg PO QAM 01/27/25 01/27/25 History losartan 25 mg tablet 25 mg PO QAM 01/27/25 01/27/25 History triamcinolone acetonide 0.1 % 1 applic topical BID PRN Other 01/27/25 01/27/25 History topical ointment Allergies Allergy/AdvReac Type Severity Reaction Status Date / Time No Known Allergies Allergy Mild Verified 01/27/25 10:31 Past Med/Surg History Problem List (Updated 01/27/25 @ 12:29 by Beni Garcia MD) Acute CVA (cerebrovascular accident) (Acute) Diabetic nephropathy associated with type 2 diabetes mellitus Personal history of diabetic foot ulcer Diabetic peripheral neuropathy associated with type 2 diabetes mellitus Eczema of both hands Microalbuminuria Diabetes (Acute) Medical History Proliferative diabetic retinopathy associated with type 2 diabetes mellitus Macular edema due to type 2 diabetes mellitus Injury of left knee Surgical History History of hernia surgery Family History Mother Coronary heart disease Myocardial infarction Grandmother (Maternal) Myocardial infarction Aunt Myocardial infarction Denies family history of Ovarian cancer Prostate cancer Breast cancer Colorectal cancer Social History Smoking Status: Current every day smoker Tobacco Type: E-cigarettes / Vaping Age Started Using Tobacco: 17; Cigarettes Per Day: 1/2 pack/day; Second Hand Exposure: No; Do You Dip or Chew Tobacco: No; Hx Alcohol Use: Yes Hx Substance Use: No Preferred Language: Afghan Communication Ability: Effective 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: No Beliefs That Will Affect Care: None marital status: Single Current Living Situation: Family Current Living Situation Comment: Lives at home with step father current occupational status: employed 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 Physical Exam Vital Signs Vital Signs - 24 hr 01/27/25 08:46 01/27/25 09:19 01/27/25 09:24 Temperature 36.5 C Temperature Source Temporal Artery Scan Pulse Rate 86 88 Pulse Rate [Right Finger] Pulse Rhythm [Right Finger] Pulse Strength [Right Finger] Respiratory Rate 18 Respiratory Effort / Characteristics Non-Labored Respiratory Depth Normal Respiratory Pattern Blood Pressure 151/87 H Blood Pressure [Right Arm] Blood Pressure Mean 108 Blood Pressure Mean [Right Arm] Blood Pressure Position [Right Arm] Pulse Oximetry 97 Oxygen Delivery Method Room Air Room Air Sepsis Recent Fever Within 48 Hours No Sepsis New/Unexplained Change in Mental Status No Sepsis Action Taken by Nursing No Action Required 01/27/25 09:24 01/27/25 11:00 Temperature Temperature Source Pulse Rate Pulse Rate [Right Finger] 74 69 Pulse Rhythm [Right Finger] Regular Regular Pulse Strength [Right Finger] Normal Normal Respiratory Rate 13 21 Respiratory Effort / Characteristics Non-Labored Spontaneous Non-Labored Spontaneous Respiratory Depth Normal Normal Respiratory Pattern Regular Blood Pressure Blood Pressure [Right Arm] 169/85 H 171/97 H Blood Pressure Mean Blood Pressure Mean [Right Arm] 113 121 Blood Pressure Position [Right Arm] Lying Lying Pulse Oximetry 94 92 Oxygen Delivery Method Room Air Room Air Sepsis Recent Fever Within 48 Hours Sepsis New/Unexplained Change in Mental Status Sepsis Action Taken by Nursing See below. Constitutional WD/WN, vitals as above Respiratory normal respiratory effort, lungs clear to auscultation Cardiovascular RRR, no murmur, no edema Neurologic Cranial nerves II through XII are intact, no visual field cuts noted on confrontational testing, no light touch sensation deficits noted large dermatomes of the face upper or lower extremities, no dysmetria noted in all 4 limbs, 5 out of 5 strength in the upper and lower limbs bilaterally, normal speech, normal gait, NIH stroke scale of 0 Course Administered Medications Discontinued Medications Gadobutrol (Gadobutrol 65ml Vial) 9 ml IV ONCE ONE Stop: 01/27/25 11:29 Last Admin: 01/27/25 11:29 Dose: 9 ml Documented By: SHEN Medical Decision Making Differential Diagnosis DDx includes but not limited to: TIA, CVA, neuropathy, metabolic derangement Laboratory Data 01/27/25 09:09 01/27/25 09:09 Lab Results 01/27/25 01/27/25 Range/Units 09:09 09:20 WBC 6.41 (4.8-10.8) K/ul RBC 5.99 (4.70-6.10) M/uL Hgb 16.7 (14.0-18.0) g/dl Hct 49.6 (42.0-52.0) % MCV 82.8 (80.0-100.0) fL MCH 27.9 (25.0-34.0) pg MCHC 33.7 (32.0-36.0) g/dL RDW Std Deviation 37.8 (36.4-46.3) fL RDW Coeff of Gill 12.5 (11.5-14.5) % Plt Count 217 (130-400) K/uL MPV 10.0 (9.4-12.4) fL Immature Gran % (Auto) 0.2 % Neut % (Auto) 68.4 % Lymph % (Auto) 20.3 % [place] % (Auto) 8.1 % Eos % (Auto) 2.2 % Baso % (Auto) 0.8 % Neut # (Auto) 4.39 (1.40-6.50) K/uL Lymph # (Auto) 1.30 (1.20-3.40) K/uL [place] # (Auto) 0.52 (0.11-0.59) K/uL Eos # (Auto) 0.14 (0.00-0.50) K/uL Baso # (Auto) 0.05 (0.00-0.20) K/uL Immature Gran # (Auto) 0.01 (0.01-0.20) K/uL PT 10.9 (9.0-12.0) Seconds INR 1.0 (0.9-1.1) APTT 27 (21-31) Seconds PTT Ratio 1.0 Sodium 137 (136-145) mmol/L Potassium 4.3 (3.5-5.1) mmol/L Chloride 101 (98-107) mmol/L Carbon Dioxide 27 (21-32) mmol/L Anion Gap 9 (3-11) BUN 20 (6-23) mg/dl Creatinine 0.89 (0.6-1.4) mg/dl Est Cr Clr Drug Dosing 111.1 ml/min eGFR 103.75 BUN/Creatinine Ratio 22.5 H (10-20) Glucose 198 H (70-99(Fasting)) mg/dl POC Glucose 187 H (70-99) mg/dl Calcium 9.3 (8.6-10.3) mg/dl Magnesium 1.8 (1.7-2.4) mg/dl Total Bilirubin 0.5 (0.2-1.0) mg/dl AST 17 (13-39) U/L ALT 20 (7-52) U/L Alkaline Phosphatase 51 (34-104) U/L Troponin I High Sens 2.6 (0-20) pg/ml Total Protein 7.2 (6.0-8.3) gm/dl Albumin 4.4 (3.4-5.0) gm/dl Globulin 2.8 (2.5-4.0) gm/dl Albumin/Globulin Ratio 1.6 (0.9-2) Imaging Data Radiologist's Impression: Head CT 01/27/25 09:09 CT head/brain wo con CLINICAL HISTORY: neuro deficit, acute stroke suspected. TECHNIQUE: Multiple axial CT images of the head were obtained without contrast. A dose lowering technique was utilized adhering to the principles of ALARA. CT DOSE: 625.8 mGy.cm COMPARISON: None FINDINGS: No intracranial hemorrhage seen. No mass effect, midline shift, or hydrocephalus. No skull fracture seen. Visualized paranasal sinuses and mastoid air cells are clear. IMPRESSION: No acute findings. ACT 112: Negative or not required by law. The above report was generated using voice recognition software. It may contain grammatical, syntax or spelling errors. Electronically signed by: Aleksandr Kerns M.D. 01/27/2025 9:33 AM Brain MRI 01/27/25 09:58 MRI OF THE BRAIN COMBO CLINICAL HISTORY: Right arm and leg weakness. Evaluate for stroke. COMPARISON STUDY: Head CT performed earlier today. TECHNIQUE: MRI of the brain was performed utilizing various T1 and T2-weighted sequences in the axial, sagittal, and coronal planes. Contrast-enhanced sequences were acquired following the administration of 9 cc of Gadavist. FINDINGS: There is a small 6 mm hyperintense focus within the left anterior medulla on image 6 of 23 of the diffusion-weighted sequence. No corresponding signal abnormality is identified within the remainder of the pulsing sequences. Artifact is favored however a small acute medullary infarct could appear similar. Diffusion-weighted sequence is otherwise normal. Ventricular system is unremarkable. Basal cisterns are patent. No acute intracranial hemorrhage, midline shift or mass effect is present. There is no intracranial mass or pathologic enhancement. No parenchymal signal abnormality is present. There is moderate ethmoid and frontal sinus mucosal thickening. A small amount of fluid within the right mastoid air cells is present. IMPRESSION: 1. Small 6 mm hyperintense focus within the left anterior medulla on the diffusion-weighted sequence without corresponding signal abnormality on the remainder of the pulsing sequences. Artifact is favored however a small acute left medullary infarct could appear similar. The findings could be correlated with clinical evidence for a medullary infarct. 2. Otherwise, unremarkable MRI of the brain. ACT 112: Negative or not required by law. Electronically signed by: Perez Barrera M.D. 01/27/2025 12:10 PM ECG Data Indication: + other Rate (beats per minute): 81 Rhythm: + normal sinus ECG Intervals/blocks: + Normal QRS, + Normal QT and + Normal CO ECG ST segments: + Normal ST segments Comparison ECG Date: no prior available Change: no significant change MDM Narrative Patient is a 49-year-old male presents for subjective numbness and tingling to the right arm and weakness in the right leg that started on Friday. He is outside the window for thrombolytics or endovascular therapy. Therefore no indication for code stroke activation. NIH stroke score of 0 here on my examination. CT imaging was obtained and nonconcerning. Follow-up MRI here in the ED shows a small 6 mm hyperintense focus within the left anterior medulla. Possible artifact versus small acute infarct. This does correlate to the area of patient's deficits. Dual antiplatelet therapy was ordered as well as a statin. Will be admitted for CVA management. Stable for admission to hospitalist service. Impression & Plan Acute CVA (cerebrovascular accident) Discharge Plan Visit Data Chief Complaint: Neuro Symptoms/Deficit Stated Complaint: R ARM AND LEG NUMB ED Provider: Beni Garcia Discharge Problem: Acute CVA (cerebrovascular accident) Patient Disposition: Admitted As Inpatient Condition: Good Forms Stand Alone Forms: My [facility] [employer] Prescriptions Prescriptions: No Action (DME) pen needle, diabetic [BD Maritza 2nd Gen Pen Needle] 32 gauge x 5/32" needle See Rx Instructions .Route Qty: 100 5RF Rx Instructions: As directed (DME) OneTouch Verio test strips Strip See Rx Instructions .Route Qty: 100 11RF Rx Instructions: test 3 times daily (DME) lancets 33 gauge misc See Rx Instructions .Route Qty: 100 11RF Rx Instructions: test 3 times daily metformin 500 mg tablet extended release 24 hr 1,000 mg PO BID Qty: 120 11RF Rx Instructions: pt aware dose change [id number] [Excedrin Migraine] 250-250-65 mg Tablet 2 tab PO BID PRN (Reason: Migraine Headache) atorvastatin 10 mg tablet 10 mg PO QAM triamcinolone acetonide 0.1 % ointment 1 applic topical BID PRN (Reason: Other) losartan 25 mg tablet 25 mg PO QAM Referrals Referrals: Babita Tristan CRNP [Primary Care Provider] -
[2025-01-27 09:33] LABS: Hematocrit (blood only) 49.6 % (42.0-52.0); Hemoglobin 16.7 g/dl (14.0-18.0); Immature Granulocytes # (auto) 0.01 K/uL (0.01-0.20); Immature Granulocytes % (auto) 0.2 %; Mean Corpuscular Hemoglobin 27.9 pg (25.0-34.0); Mean Corpuscular Volume 82.8 fL (80.0-100.0); Platelet Count 217 K/uL (130-400); RDW Standard Deviation 37.8 fL (36.4-46.3); Red Blood Count 5.99 M/uL (4.70-6.10); White Blood Count 6.41 K/ul (4.8-10.8)
--- NOTE | 2025-01-27 09:35 | CT Scan Report ---
CT head/brain wo con CLINICAL HISTORY: neuro deficit, acute stroke suspected. TECHNIQUE: Multiple axial CT images of the head were obtained without contrast. A dose lowering tech nique was utilized adhering to the principles of ALARA. CT DOSE: 625.8 mGy.cm COMPARISON: None FINDINGS: No intracranial hemorrhage seen. No mass effect, midline shift, or hydrocephalus. No skull fracture seen. Visualized paranasal sinuses and mastoid air cells are clear. IMPRESSION: No acute findings. ACT 112: Negative or not required by law. The above report was generated using voice recognition software. It may contain grammatical, syntax o r spelling errors. Electronically signed by: Aleksandr Kerns M.D. 01/27/2025 9:33 AM
[2025-01-27 10:00] LABS: INR 1.0 (0.9-1.1); Partial Thromboplastin Time 27 Seconds (21-31); Prothrombin Time 10.9 Seconds (9.0-12.0)
[2025-01-27 10:01] LABS: Alanine Aminotransferase 20.0 U/L (7-52); Albumin Globulin Ratio 1.6 (0.9-2); Albumin Level 4.4 gm/dl (3.4-5.0); Alkaline Phosphatase 51.0 U/L (34-104); Anion Gap 9.0 (3-11); Bilirubin,Total 0.5 mg/dl (0.2-1.0); Blood Urea Nitrogen 20.0 mg/dl (6-23); Calcium 9.3 mg/dl (8.6-10.3); Carbon Dioxide 27.0 mmol/L (21-32); Chloride 101.0 mmol/L (98-107); Creatinine Clr Calc Pharmacy 111.1 ml/min; Globulin 2.8 gm/dl (2.5-4.0); Glucose 198.0 mg/dl (70-99(Fasting)); Magnesium 1.8 mg/dl (1.7-2.4); Potassium 4.3 mmol/L (3.5-5.1); Sodium 137.0 mmol/L (136-145); Total Protein 7.2 gm/dl (6.0-8.3)
[2025-01-27] MEDS: GADOBUTROL 65ML VIAL IV ONE (11:29)
--- NOTE | 2025-01-27 12:12 | Magnetic Resonance Report ---
MRI OF THE BRAIN COMBO CLINICAL HISTORY: Right arm and leg weakness. Evaluate for stroke. COMPARISON STUDY: Head CT performed earlier today. TECHNIQUE: MRI of the brain was performed utilizing various T1 and T2-weighted sequences in the axial , sagittal, and coronal planes. Contrast-enhanced sequences were acquired following the administratio n of 9 cc of Gadavist. FINDINGS: There is a small 6 mm hyperintense focus within the left anterior medulla on image 6 of 23 of the diffusion-weighted sequence. No corresponding signal abnormality is identified within the cortney rhiannon of the pulsing sequences. Artifact is favored however a small acute medullary infarct could carlos ear similar. Diffusion-weighted sequence is otherwise normal. Ventricular system is unremarkable. Bas al cisterns are patent. No acute intracranial hemorrhage, midline shift or mass effect is present. Th ere is no intracranial mass or pathologic enhancement. No parenchymal signal abnormality is present. There is moderate ethmoid and frontal sinus mucosal thickening. A small amount of fluid within the ri ght mastoid air cells is present. IMPRESSION: 1. Small 6 mm hyperintense focus within the left anterior medulla on the diffusion-weighted sequence without corresponding signal abnormality on the remainder of the pulsing sequences. Artifact is favor ed however a small acute left medullary infarct could appear similar. The findings could be correlate d with clinical evidence for a medullary infarct. 2. Otherwise, unremarkable MRI of the brain. ACT 112: Negative or not required by law. Electronically signed by: Perez Barrera M.D. 01/27/2025 12:10 PM
[2025-01-27] MEDS: CLOPIDOGREL BISULFATE 300 MG TAB PO STA (12:34)
[2025-01-27] MEDS: ASPIRIN CHEW 324 MG PO STA (12:35)
[2025-01-27] MEDS ORDERED: PHARMACIST DISCHARGE MED REC CONSULT PRN (13:09)
--- NOTE | 2025-01-27 13:21 | History & Physical Report ---
Date of Service January 27, 2025 Assessment & Plan (1) Acute CVA (cerebrovascular accident): Plan: Mr. Delfino Mike is a 49 yo male with PMh of diabetes, smoking (vaper), alcohol use disorderr, neuropathy he's was having numbness (right side) on 01/26/2025 morning, he's also mentioned right leg unsteadiness and knee buckling sensation he's continue to has the right side numbness and came to our ED on 01/27 his brain MRI concern for 6mm focus in the left anterior medulla, his CT head negative he will be admitted for acute CVA on interview at 12:20noon, he's mentioned that his right side numbness improved, his is AAox3 1. acute CVA, , right side numbness, right leg inability 2. hx of diabetes 3. tobacco use disorder 4. alcohol use disorder aspirin 81mg, plavix 75mg increased home dose of lipitor from 10mg and 40mg event monitor echo plan for CTA to r/o intracranial stenosis smoking cessation discussed risk of and explained explained alcohol cessation discussed, risk of liver injury explained. he will need repeat LFT with higher dose of lipitor we discussed that he's overdue for colonoscopy code status: full code (2) Right sided numbness: History of Present Illness Chief Complaint: right side numbness since yesterday morning acute CVA on owen MRI Primary Care Provider: JOEY Fair Mr. Delfino Mike is a 49 yo male with PMh of diabetes, smoking (vaping), alcohol use disorder. 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 on 01/26/2025, he's started noticing right upper e xtremity numbness and tingling in addition, he's also noticing right leg numbness, knee buckling sensation. he mentioned that when he going from sitting to standing position, he felt unsteady on 01/27/2025, he's presented to our hospital for medical evaluation, CT head negative for bleeding however, brain MRI concern for samll 6mm hyper-intesive focus on the left anterior medulla he's was started on apirin, plavix and lipitor he will need inpatient admission for IV fluid, permissive HTN, neuro evaluation. we discussed that he need to begin aspirin, plavix and his lipitor need to increased from 10mg to 40mg he's overdue for colonoscopy; we discussed that he need to has colon cancer screening on interview ROS negative for AMS, dizziness, slurred speech, blurry vision, confusion no hx of seizure he's has no palpitation, no chest pain no abdominal pain he is AAOx3 Allergies Allergy/AdvReac Type Severity Reaction Status Date / Time No Known Allergies Allergy Mild Verified 01/27/25 10:31 Home Medications Medication Instructions Recorded Confirmed Type tijlaev-rzvkchxdgoque-[id number] 250 2 tab PO BID PRN Migraine Headache 07/23/22 01/27/25 History mg-250 mg-65 mg tablet (Excedrin Migraine) pen needle, diabetic 32 gauge x #100 ea 10/24/22 12/06/24 Rx 5/32" (BD Maritza 2nd Gen Pen Needle) blood sugar diagnostic (OneTouch #100 ea 01/29/24 12/06/24 Rx Verio test strips) lancets 33 gauge #100 ea 01/29/24 12/06/24 Rx metformin 500 mg tablet,extended 1,000 mg (2 x 500 mg) PO BID #120 10/29/24 01/27/25 Rx release 24 hr tabs atorvastatin 10 mg tablet 10 mg PO QAM 01/27/25 01/27/25 History losartan 25 mg tablet 25 mg PO QAM 01/27/25 01/27/25 History triamcinolone acetonide 0.1 % 1 applic topical BID PRN Other 01/27/25 01/27/25 History topical ointment Past Med/Surg History Problem List (Updated 01/27/25 @ 13:18 by Travis Azevedo DO) Right sided numbness Acute CVA (cerebrovascular accident) (Acute) Diabetic nephropathy associated with type 2 diabetes mellitus Personal history of diabetic foot ulcer Diabetic peripheral neuropathy associated with type 2 diabetes mellitus Eczema of both hands Microalbuminuria Diabetes (Acute) Medical History Proliferative diabetic retinopathy associated with type 2 diabetes mellitus Macular edema due to type 2 diabetes mellitus Injury of left knee Surgical History History of hernia surgery Family History Mother Coronary heart disease Myocardial infarction Grandmother (Maternal) Myocardial infarction Aunt Myocardial infarction Denies family history of Ovarian cancer Prostate cancer Breast cancer Colorectal cancer Social History Smoking Status: Current every day smoker Tobacco Type: E-cigarettes / Vaping Age Started Using Tobacco: 17; Cigarettes Per Day: 1/2 pack/day; Second Hand Exposure: No; Do You Dip or Chew Tobacco: No; Hx Alcohol Use: Yes Hx Substance Use: No Preferred Language: Thai Communication Ability: Effective Quality Systems Technician Required: No Beliefs That Will Affect Care: None marital status: Single Current Living Situation: Family Current Living Situation Comment: Lives at home with step father current occupational status: employed 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 How many Children do You have: 1 Feels Safe at Home: Yes Childhood Exposure to Second-Hand Smoke: Yes Diet: diabetic and low carbohydrate caffeine: Yes Dental Care, Regularly: No Physical Activity Frequency: Daily Seatbelt Use: always Sunscreen Use: No Assistive Devices: None Review of Systems Review of Systems: Constitutional: No Weight Change, No Fever, No Chills, No Night Sweats, No Fatigue, No Malaise ENT/Mouth: No Hearing Changes, No Ear Pain, No Nasal Congestion, No Sinus Pain, No Hoarseness, No sore throat, No Rhinorrhea, No Swallowing Difficulty Eyes: No Eye Pain, No Swelling, Cardiovascular: No Chest Pain, No SOB, No PND, No Dyspnea on Exertion, No Orthopnea, No Claudication, No Edema, No Palpitations Respiratory: No Cough, No Sputum, No Wheezing No Dyspnea Gastrointestinal: No Nausea, No Vomiting, No Diarrhea, No Constipation, No Pain, No Heartburn, No Anorexia, No Dysphagia, Genitourinary: No DUB, No Dyspareunia, No Dysuria, No Urinary Frequency, Musculoskeletal: No Arthralgias, No Myalgias, No Joint Swelling, No Joint Stiffness, No Back Pain, No Neck Pain, No Injury History Skin: No Skin Lesions, No Pruritis, No Hair Changes Neuro:+ for right side numbness; no dizziness; no headache; on confusion; no slurred speech; no blurry vision + for chronic neuropathy endocrine+ for diabetes Physical Exam Physical Exam: VITALS: Reviewed. WEIGHT/BMI reviewed. GEN: Healthy appearing, well-developed, NAD. PSYCH: Good Judgment. AOx3. Normal memory, mood, and affect. HEENT -Head: NC/AT; -Eyes: PERRL, EOMI. No discharge or redn ess; Neuro: AAox3; no pronator drift; negative babiski sign; normal finger to nose; AAox3; 5/5 strength normal sensation to soft touch; no delayed in speech; following complex command NECK: Supple, with no masses. CV: RRR, no m/r/g. LUNGS: CTAB, no w/r/c. ABD: Soft, NT/ND, NBS, no masses or organomegaly. : N/A SKIN: Warm, well perfused. No skin rashes or abnormal lesions. MSK: No deformities, Normal gait. EXT: No clubbing, cyanosis, or edema. Results & Data Results & Data Vital Signs (Past 12 Hours) Vital Signs Temp Pulse Pulse Resp BP BP Pulse Ox 01/27/25 13:00 69 18 188/102 H 96 01/27/25 11:00 69 21 171/97 H 92 01/27/25 09:24 74 13 169/85 H 94 01/27/25 09:24 01/27/25 09:19 88 01/27/25 08:46 36.5 C 86 18 151/87 H 97 O2 Del Method 01/27/25 13:00 01/27/25 11:00 Room Air 01/27/25 09:24 Room Air 01/27/25 09:24 Room Air 01/27/25 09:19 01/27/25 08:46 Room Air Laboratory Results Laboratory Results - last 72 hr 01/27/25 01/27/25 09:09 09:20 WBC 6.41 RBC 5.99 Hgb 16.7 Hct 49.6 MCV 82.8 MCH 27.9 MCHC 33.7 RDW Std Deviation 37.8 RDW Coeff of Gill 12.5 Plt Count 217 MPV 10.0 Immature Gran % (Auto) 0.2 Neut % (Auto) 68.4 Lymph % (Auto) 20.3 [place] % (Auto) 8.1 Eos % (Auto) 2.2 Baso % (Auto) 0.8 Neut # (Auto) 4.39 Lymph # (Auto) 1.30 [place] # (Auto) 0.52 Eos # (Auto) 0.14 Baso # (Auto) 0.05 Immature Gran # (Auto) 0.01 PT 10.9 INR 1.0 APTT 27 PTT Ratio 1.0 Sodium 137 Potassium 4.3 Chloride 101 Carbon Dioxide 27 Anion Gap 9 BUN 20 Creatinine 0.89 Est Cr Clr Drug Dosing 111.1 eGFR 103.75 BUN/Creatinine Ratio 22.5 H Glucose 198 H POC Glucose 187 H Calcium 9.3 Magnesium 1.8 Total Bilirubin 0.5 AST 17 ALT 20 Alkaline Phosphatase 51 Troponin I High Sens 2.6 Total Protein 7.2 Albumin 4.4 Globulin 2.8 Albumin/Globulin Ratio 1.[address] 01/27/25 09:09 CT head/brain wo con CLINICAL HISTORY: neuro deficit, acute stroke suspected. TECHNIQUE: Multiple axial CT images of the head were obtained without contrast. A dose lowering technique was utilized adhering to the principles of ALARA. CT DOSE: 625.8 mGy.cm COMPARISON: None FINDINGS: No intracranial hemorrhage seen. No mass effect, midline shift, or hydrocephalus. No skull fracture seen. Visualized paranasal sinuses and mastoid air cells are clear. IMPRESSION: No acute findings. ACT 112: Negative or not required by law. The above report was generated using voice recognition software. It may contain grammatical, syntax or spelling errors. Electronically signed by: Aleksandr Kerns M.D. 01/27/2025 9:33 AM Brain MRI 01/27/25 09:58 MRI OF THE BRAIN COMBO CLINICAL HISTORY: Right arm and leg weakness. Evaluate for stroke. COMPARISON STUDY: Head CT performed earlier today. TECHNIQUE: MRI of the brain was performed utilizing various T1 and T2-weighted sequences in the axial, sagittal, and coronal planes. Contrast-enhanced sequences were acquired following the administration of 9 cc of Gadavist. FINDINGS: There is a small 6 mm hyperintense focus within the left anterior medulla on image 6 of 23 of the diffusion-weighted sequence. No corresponding signal abnormality is identified within the remainder of the pulsing sequences. Artifact is favored however a small acute medullary infarct could appear similar. Diffusion-weighted sequence is otherwise normal. Ventricular system is unremarkable. Basal cisterns are patent. No acute intracranial hemorrhage, midline shift or mass effect is present. There is no intracranial mass or pathologic enhancement. No parenchymal signal abnormality is present. There is moderate ethmoid and frontal sinus mucosal thickening. A small amount of fluid within the right mastoid air cells is present. IMPRESSION: 1. Small 6 mm hyperintense focus within the left anterior medulla on the diffusion-weighted sequence without corresponding signal abnormality on the remainder of the pulsing sequences. Artifact is favored however a small acute left medullary infarct could appear similar. The findings could be correlated with clinical evidence for a medullary infarct. 2. Otherwise, unremarkable MRI of the brain. ACT 112: Negative or not required by law. Electronically signed by: Perez Barrera M.D. 01/27/2025 12:10 PM Medications Administered Current Inpatient Medications Acetaminophen (Acetaminophen 325 Mg Tab) 650 mg PO Q6H PRN PRN Reason: Temp > 38 C Stop: 02/26/25 13:08 Aspirin (Aspirin 81 Mg Ectab) 162 mg PO QAM SAI Stop: 02/27/25 08:59 Atorvastatin Calcium (Atorvastatin 40 Mg Tab) 80 mg PO QAM SAI Stop: 02/26/25 12:29 Clopidogrel Bisulfate (Clopidogrel Bisulfate 75 Mg Tab) 75 mg PO QAM SAI Stop: 02/27/25 08:59 Heparin Sodium (Porcine) (Heparin Sod 5,000 Unit/0.5 Ml Vial) 5,000 units SQ Q8 SAI Stop: 02/26/25 13:59 Sodium Chloride (Nss) 1,000 mls @ 125 mls/hr IV .Q8H SAI Stop: 01/29/25 12:44 Miscellaneous Information (Pharmacist Discharge Med Rec Consult) 1 each N/A UD PRN PRN Reason: Consult Stop: 02/26/25 13:08 Code Status & VTE Plan Code Status full code he's designated his stepfather as his decision maker PG Care Time/CCT Total # of Minutes Spent Total Time Spent with Patient: Total time spent is greater than 50% in coordination of care (as documented) at patient's floor/unit and/or counseling patient: Coding Level of Care Code 54815 INT INP/OBS CARE 1/40MIN Diagnoses Acute CVA (cerebrovascular accident) I63.9 Right sided numbness R20.0 Time Spent (min) 35
--- NOTE | 2025-01-27 13:28 | Electrocardiogram Report ---
Test Reason : Blood Pressure : */* mmHG Vent. Rate : 81 BPM Atrial Rate : 81 BPM P-R Int : 164 ms QRS Dur : 82 ms QT Int : 362 ms P-R-T Axes : 33 43 37 degrees QTcB Int : 420 ms Normal sinus rhythm Normal ECG When compared with ECG of 04-Jan-2024 21:25, No significant change was found Confirmed by Grayson Dean ([id number]) on 01/27/2025 1:28:30 PM Referred By: REFERRED SELF Confirmed By: Grayson Dean
[2025-01-27] MEDS: HEPARIN SOD 5,000 UNIT/0.5 ML VIAL SQ SCH (14:31)
[2025-01-27] MEDS: SODIUM CHLORIDE 0.9% 1,000 ML IV SCH (14:33)
--- NOTE | 2025-01-27 14:53 | XCELERA ---
[id number]
[2025-01-27] MEDS: ATORVASTATIN 40 MG TAB PO SCH (16:47)
[2025-01-27] MEDS: ACETAMINOPHEN 325 MG TAB PO PRN (22:44)
--- NOTE | 2025-01-27 23:33 | Ultrasound Report ---
Exam(s): US VENOUS RIGHT UPPER EXTREMITY EXAM: US Duplex Right Upper Extremity Veins CLINICAL HISTORY: r/o clot. TECHNIQUE: Real-time duplex ultrasound scan of the right upper extremity veins integrating B-mode two-dimensional vascular structure, Doppler spectral analysis, color flow Doppler imaging and compression. COMPARISON: No relevant prior studies available. FINDINGS: Deep veins: No DVT in the internal jugular, subclavian, axillary, or brachial veins. The veins demonstrate normal color flow, are normally compressible, with normal phasic flow and/or augmentation response. The radial and ulnar veins are patent. Superficial veins: Unremarkable. No thrombus in the visualized basilic and cephalic veins. Soft tissues: No acute findings. IMPRESSION: No evidence for deep vein thrombosis involving the right upper extremity. Electronically signed by: Bolivar Mayberry MD 01/27/25 23:32 PM
[2025-01-28 07:07] LABS: Hematocrit (blood only) 44.7 % (42.0-52.0); Hemoglobin 14.2 g/dl (14.0-18.0); Immature Granulocytes # (auto) 0.02 K/uL (0.01-0.20); Immature Granulocytes % (auto) 0.4 %; Mean Corpuscular Hemoglobin 26.7 pg (25.0-34.0); Mean Corpuscular Volume 84.0 fL (80.0-100.0); Platelet Count 187 K/uL (130-400); RDW Standard Deviation 38.7 fL (36.4-46.3); Red Blood Count 5.32 M/uL (4.70-6.10); White Blood Count 5.54 K/ul (4.8-10.8)
[2025-01-28 07:28] LABS: Anion Gap 5.0 (3-11); Blood Urea Nitrogen 13.0 mg/dl (6-23); Calcium 8.4 mg/dl (8.6-10.3); Carbon Dioxide 26.0 mmol/L (21-32); Chloride 106.0 mmol/L (98-107); Cholesterol 133.0 mg/dl (0-200); Creatinine Clr Calc Pharmacy 130.4 ml/min; Glucose 115.0 mg/dl (70-99(Fasting)); HDL Cholesterol 30.0 mg/dl; Potassium 4.2 mmol/L (3.5-5.1); Sodium 137.0 mmol/L (136-145); Triglycerides 176.0 mg/dl (0-150)
[2025-01-28] MEDS: CLOPIDOGREL BISULFATE 75 MG TAB PO SCH (07:41)
[2025-01-28] MEDS: ASPIRIN 81 MG ECTAB PO SCH (07:41)
[2025-01-28] MEDS: LOSARTAN POTASSIUM 25 MG TAB PO SCH (07:41)
[2025-01-28 07:42] LABS: Hemoglobin A1C 8.2 % (4.5-5.6)
[2025-01-28] MEDS: OPTIRAY 320 125ml IV ONE (08:30)
--- NOTE | 2025-01-28 09:08 | CT Scan Report ---
CT angio head wo/w CLINICAL HISTORY: Stroke. Right-sided numbness. COMPARISON STUDY: Head CT and MRI of the brain January 27, 2025. TECHNIQUE: Unenhanced and arterial phase imaging of the head was performed. Intravenous injection of 120 cc Optiray 320 IV was uneventful. Sagittal and coronal reconstructions were viewed as well as max imal intensity projections on an independent 3-D workstation. A dose lowering technique was utilized adhering to the principles of ALARA. FINDINGS: No acute intracranial hemorrhage, midline shift or mass effect is present. Ventricular syst em is normal. Basal cisterns are patent. There are no intra-axial collections. Bullard-white differentia tion is maintained. The possible small left anterior medullary infarct on MRI of January 27, 2025 is n ot definitively depicted on this exam. The bilateral M1, M2, A1 and A2 segments are patent. There is no intracranial aneurysm. There is mild plaque within the cavernous carotids without stenosis. The in tracranial portion of the right vertebral artery is dominant and contains mild atherosclerotic plaque . There is irregularity of the intracranial portion of left vertebral artery due to atherosclerosis. Associated calcified plaque is present. There is severe stenosis of the mid intracranial portion of l eft vertebral artery with age indeterminate occlusion of the distal left vertebral artery shown on im age 67 of 273. There is a tiny 3 mm saccular aneurysm arising from the posterior aspect of the mid ba silar artery on image 90 of 273. No additional intracranial aneurysms are identified. IMPRESSION: 1. No acute intracranial findings. The possible small left anterior medullary infarct on MRI of Octob [address]24 is [address] depicted on CT. 2. Irregularity of the intracranial portion of the left vertebral artery due to atherosclerosis. Teresa re stenosis of the mid intracranial portion of left vertebral artery with age indeterminate occlusion of the distal left vertebral artery. 3. Tiny 3 mm saccular aneurysm arising from the posterior aspect of the mid basilar artery. ACT 112: Negative or not required by law. Electronically signed by: Perez Barrera M.D. 01/28/2025 9:06 AM
--- NOTE | 2025-01-28 09:15 | CT Scan Report ---
CT angio neck with con CLINICAL HISTORY: 49 years-old Male with stroke. Acute stroke like symptoms COMPARISON STUDY: CTA head of same day, brain MR 01/27/2025 TECHNIQUE: Following the IV administration of 120 mL of Optiray, CT angiogram of the neck was perform ed from the aortic arch to the skull base. Images are reviewed in the axial, sagittal, and coronal pl anes. 3-D MIPS images are created and assessed. IV contrast was administered without complication. Al l measurements were calculated based on NASCET criteria. A dose lowering technique was utilized adhe ring to the principles of ALARA. CT DOSE: 1093.1 mGy.cm FINDINGS: Three-vessel morphology of the thoracic aortic arch. There is patency of the innominate and image sub clavian arteries. The common carotid arteries are widely patent. Atherosclerosis of the carotid bulbs causes less than 50% stenosis bilaterally. Calcified plaque at the origin of the right vertebral art cm causes 60% stenosis. The right vertebral artery is dominant. Age indeterminate occlusion involves the V4 segment left vertebral artery secondary to atherosclerosis on image [address] enosis of the V4 segment right vertebral artery on image 340 series 7. 3 mm saccular aneurysm involve s the posterior wall of the mid basilar artery in image 371. No pneumothorax. Lung apices are clear. Unremarkable soft tissues. No acute fracture. IMPRESSION: 1. Age-indeterminate occlusion of the V4 segment left vertebral artery. 2. Areas of moderate stenosis noted within the right vertebral artery. 3. 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 4. Patent carotid arteries. ACT 112: Negative or not required by law. The above report was generated using voice recognition software. It may contain grammatical, syntax o r spelling errors. Electronically signed by: Vijay Nuñez M.D. 01/28/2025 9:14 AM
--- NOTE | 2025-01-28 10:41 | Ultrasound Report ---
CAROTID ARTERY ULTRASOUND CLINICAL HISTORY: CVA COMPARISON STUDY: CTA earlier today TECHNIQUE: Real-time, grayscale, and color Doppler sonography of the carotid and vertebral arteries w as performed. Images were viewed in the transverse and longitudinal planes. FINDINGS: Velocities and ratios and waveforms are normal at the common and internal carotid arteries bilaterally. No significant narrowing or occlusion seen. There is antegrade flow in both vertebral ar teries. IMPRESSION: No significant narrowing or occlusion seen of the carotid arteries. ACT 112: Negative or not required by law. Electronically signed by: Aleksandr Kerns M.D. 01/28/2025 10:39 AM
--- NOTE | 2025-01-28 11:29 | Hospitalist Progress Note ---
Date of Service January 28, 2025 Assessment & Plan (1) Acute CVA (cerebrovascular accident): Plan: Mr. Delfino Mike is a 49 yo male with PMh of diabetes, smoking (vaper), alcohol use disorder, neuropathy he's was having numbness (right side) on 01/26/2025 morning, he's also mentioned right leg unsteadiness and knee buckling sensation he's continue to has the right side numbness and came to our ED on 01/27 his brain MRI concern for 6mm focus in the left anterior medulla his CTA concern for age indeterminated occluson of v4 Segment of left vertebral artery area of moderate stenosis within right vertebral artery 3mm saccular aneurysm of basilar artery he will be admitted for acute CVA on 01/27/ :20noon, he's mentioned that his right side numbness improved, his is AAox3 on 01/28/2025, he mentioned ongoing intermittent right leg weakness, instability, also has intermittent right arm numbness he will required ongoing IV fluid, aspirin, plavix, permissive HTN 1. acute CVA, , right side numbness, right leg inability 2. age indeterminate occluson of v4 segment of left vertebral artery 3. moderate stenosis within right vertebral artery 4. 3mm saccular aneurysm of basilar artery 5. hx of diabetes 6. tobacco use disorder 7. alcohol use disorder acute stroke he's has ongoing right leg weakness, instability and intermittent tingling of right arm he's will need plavix, aspirin lipitor dose increased 80mg ongoing permissive HTN, IV fluid hold his ELENITA-I age indeterminate occlusion of v4 segment of left vertebral artery moderate stenosis within right vertebral artery 3mm saccular aneurysm of basilar artery neurology consult smoking smoking cessation discussed risk of and explained explained alcohol cessation discussed, risk of liver injury explained. he will need repeat LFT with higher dose of lipitor we discussed that he's overdue for colonoscopy code status: full code (2) Right sided numbness: Admission and Anticipated Discharge Date Admission Date: January 27, 2025 Subjective patient seen at 10am still have ongoing right side numbness he's still have ongoing right leg weakness and sensation of unsteadiness he's required ongoing IV fluid for permissive hypertension he's required ongoing neuro evaluation CTA showed 3mm saccular aneurysm of basilar artery; age indeterminated occlusoi of V4 segment of left vertebral artery Review of Systems Review of Systems: Constitutional: No Weight Change, No Fever, No Chills, No Night Sweats, No Fatigue, No Malaise HEENT: no vision change Cardiovascular: No Chest Pain, No SOB, No PND, No Dyspnea on Exertion, No Orthopnea Respiratory: No Cough, No Sputum, + for smoking Gastrointestinal: No Nausea, No Vomiting, No Diarrhea, No Constipation, No Pain, No Heartburn, Musculoskeletal: + for right knee instability Neuro: + for ongoing right arm numbness; + for ongoing right leg weakness and instability; no headache; no slurred speech no ELINOR. no vision change Physical Exam Physical Exam: VITALS: Reviewed. WEIGHT/BMI reviewed. GEN: Healthy appearing, well-developed, NAD. PSYCH: Good Judgment. AOx3. Normal memory, mood, and affect. Neuro; + for decrease strength on the right side. decrease sensation on the right hand AAox3; no speech disturbance. no facial droop. normal finger to nose test no delay in mentation HEENT -Head: NC/AT; CV: RRR, no m/r/g. LUNGS: CTAB, no w/r/c. ABD: Soft, NT/ND, NBS, no masses or organomegaly. MSK: No deformities, Normal gait. EXT: No clubbing, cyanosis, or edema. Results & Data Results & Data Vital Signs (Past 12 Hours) Vital Signs Temp Pulse Pulse Resp BP Pulse Ox O2 Del Method 01/28/25 10:53 36.7 C 71 18 141/81 H 97 Room Air 01/28/25 07:25 55 L 01/28/25 07:15 36.6 C 62 16 137/79 96 Room Air 01/28/25 04:04 36.9 C 63 16 135/84 96 Room Air Laboratory Results Laboratory Results - last 72 hr 01/27/25 01/27/25 01/27/25 09:09 09:20 15:31 WBC 6.41 RBC 5.99 Hgb 16.7 Hct 49.6 MCV 82.8 MCH 27.9 MCHC 33.7 RDW Std Deviation 37.8 RDW Coeff of Gill 12.5 Plt Count 217 MPV 10.0 Immature Gran % (Auto) 0.2 Neut % (Auto) 68.4 Lymph % (Auto) 20.3 [place] % (Auto) 8.1 Eos % (Auto) 2.2 Baso % (Auto) 0.8 Neut # (Auto) 4.39 Lymph # (Auto) 1.30 [place] # (Auto) 0.52 Eos # (Auto) 0.14 Baso # (Auto) 0.05 Immature Gran # (Auto) 0.01 PT 10.9 INR 1.0 APTT 27 PTT Ratio 1.0 Sodium 137 Potassium 4.3 Chloride 101 Carbon Dioxide 27 Anion Gap 9 BUN 20 Creatinine 0.89 Est Cr Clr Drug Dosing 111.1 eGFR 103.75 BUN/Creatinine Ratio 22.5 H Glucose 198 H POC Glucose 187 H 107 H Estimat Average Glucose Hemoglobin A1c Calcium 9.3 Magnesium 1.8 Total Bilirubin 0.5 AST 17 ALT 20 Alkaline Phosphatase 51 Troponin I High Sens 2.6 Total Protein 7.2 Albumin 4.4 Globulin 2.8 Albumin/Globulin Ratio 1.6 Triglycerides Cholesterol LDL Cholesterol, Calc VLDL Cholesterol, Calc HDL Cholesterol Cholesterol/HDL Ratio 01/28/25 06:13 WBC 5.54 RBC 5.32 Hgb 14.2 Hct 44.7 MCV 84.0 MCH 26.7 MCHC 31.8 L RDW Std Deviation 38.7 RDW Coeff of Gill 12.7 Plt Count 187 MPV 10.0 Immature Gran % (Auto) 0.4 Neut % (Auto) 64.6 Lymph % (Auto) 24.7 [place] % (Auto) 7.4 Eos % (Auto) 1.6 Baso % (Auto) 1.3 Neut # (Auto) 3.58 Lymph # (Auto) 1.37 [place] # (Auto) 0.41 Eos # (Auto) 0.09 Baso # (Auto) 0.07 Immature Gran # (Auto) 0.02 PT INR APTT PTT Ratio Sodium 137 Potassium 4.2 Chloride 106 Carbon Dioxide 26 Anion Gap 5 BUN 13 Creatinine 0.75 Est Cr Clr Drug Dosing 130.4 eGFR 109.26 BUN/Creatinine Ratio 17.3 Glucose 115 H POC Glucose Estimat Average Glucose 189 Hemoglobin A1c 8.2 H Calcium 8.4 L Magnesium Total Bilirubin AST ALT Alkaline Phosphatase Troponin I High Sens Total Protein Albumin Globulin Albumin/Globulin Ratio Triglycerides 176 H Cholesterol 133 LDL Cholesterol, Calc 68 VLDL Cholesterol, Calc 35 H HDL Cholesterol 30 Cholesterol/HDL Ratio 4.[address] 01/27/25 09:09 CT head/brain wo con CLINICAL HISTORY: neuro deficit, acute stroke suspected. TECHNIQUE: Multiple axial CT images of the head were obtained without contrast. A dose lowering technique was utilized adhering to the principles of ALARA. CT DOSE: 625.8 mGy.cm COMPARISON: None FINDINGS: No intracranial hemorrhage seen. No mass effect, midline shift, or hydrocephalus. No skull fracture seen. Visualized paranasal sinuses and mastoid air cells are clear. IMPRESSION: No acute findings. ACT 112: Negative or not required by law. The above report was generated using voice recognition software. It may contain grammatical, syntax or spelling errors. Electronically signed by: Aleksandr Kerns M.D. 01/27/2025 9:33 AM Brain MRI 01/27/25 09:58 MRI OF THE BRAIN COMBO CLINICAL HISTORY: Right arm and leg weakness. Evaluate for stroke. COMPARISON STUDY: Head CT performed earlier today. TECHNIQUE: MRI of the brain was performed utilizing various T1 and T2-weighted sequences in the axial, sagittal, and coronal planes. Contrast-enhanced sequences were acquired following the administration of 9 cc of Gadavist. FINDINGS: There is a small 6 mm hyperintense focus within the left anterior medulla on image 6 of 23 of the diffusion-weighted sequence. No corresponding signal abnormality is identified within the remainder of the pulsing sequences. Artifact is favored however a small acute medullary infarct could appear similar. Diffusion-weighted sequence is otherwise normal. Ventricular system is unremarkable. Basal cisterns are patent. No acute intracranial hemorrhage, midline shift or mass effect is present. There is no intracranial mass or pathologic enhancement. No parenchymal signal abnormality is present. There is moderate ethmoid and frontal sinus mucosal thickening. A small amount of fluid within the right mastoid air cells is present. IMPRESSION: 1. Small 6 mm hyperintense focus within the left anterior medulla on the diffusion-weighted sequence without corresponding signal abnormality on the remainder of the pulsing sequences. Artifact is favored however a small acute left medullary infarct could appear similar. The findings could be correlated with clinical evidence for a medullary infarct. 2. Otherwise, unremarkable MRI of the brain. ACT 112: Negative or not required by law. Electronically signed by: Perez Barrera M.D. 01/27/2025 12:10 PM Venous Doppler Study 01/27/25 21:31 Exam(s): US VENOUS RIGHT UPPER EXTREMITY EXAM: US Duplex Right Upper Extremity Veins CLINICAL HISTORY: r/o clot. TECHNIQUE: Real-time duplex ultrasound scan of the right upper extremity veins integrating B-mode two-dimensional vascular structure, Doppler spectral analysis, color flow Doppler imaging and compression. COMPARISON: No relevant prior studies available. FINDINGS: Deep veins: No DVT in the internal jugular, subclavian, axillary, or brachial veins. The veins demonstrate normal color flow, are normally compressible, with normal phasic flow and/or augmentation response. The radial and ulnar veins are patent. Superficial veins: Unremarkable. No thrombus in the visualized basilic and cephalic veins. Soft tissues: No acute findings. IMPRESSION: No evidence for deep vein thrombosis involving the right upper extremity. Electronically signed by: Bolivar Mayberry MD 01/27/25 23:32 PM Carotid Doppler Study 01/28/25 07:00 CAROTID ARTERY ULTRASOUND CLINICAL HISTORY: CVA COMPARISON STUDY: CTA earlier today TECHNIQUE: Real-time, grayscale, and color Doppler sonography of the carotid and vertebral arteries was performed. Images were viewed in the transverse and longitudinal planes. FINDINGS: Velocities and ratios and waveforms are normal at the common and internal carotid arteries bilaterally. No significant narrowing or occlusion seen. There is antegrade flow in both vertebral arteries. IMPRESSION: No significant narrowing or occlusion seen of the carotid arteries. ACT 112: Negative or not required by law. Electronically signed by: Aleksandr Kerns M.D. 01/28/2025 10:39 AM Head CTA 01/28/25 07:32 CT angio head wo/w CLINICAL HISTORY: Stroke. Right-sided numbness. COMPARISON STUDY: Head CT and MRI of the brain January 27, 2025. TECHNIQUE: Unenhanced and arterial phase imaging of the head was performed. Intravenous injection of 120 cc Optiray 320 IV was uneventful. Sagittal and coronal reconstructions were viewed as well as maximal intensity projections on an independent 3-D workstation. A dose lowering technique was utilized adhering to the principles of ALARA. FINDINGS: No acute intracranial hemorrhage, midline shift or mass effect is present. Ventricular system is normal. Basal cisterns are patent. There are no intra-axial collections. Bullard-white differentiation is maintained. The possible small left anterior medullary infarct on MRI of January 27, 2025 is not definitively depicted on this exam. The bilateral M1, M2, A1 and A2 segments are patent. There is no intracranial aneurysm. There is mild plaque within the cavernous carotids without stenosis. The intracranial portion of the right vertebral artery is dominant and contains mild atherosclerotic plaque. There is irregularity of the intracranial portion of left vertebral artery due to atherosclerosis. Associated calcified plaque is present. There is severe stenosis of the mid intracranial portion of left vertebral artery with age indeterminate occlusion of the distal left vertebral artery shown on image 69 of 273. There is a tiny 3 mm saccular aneurysm arising from the posterior aspect of the mid basilar artery on image 90 of 273. No additional intracranial aneurysms are identified. IMPRESSION: 1. No acute intracranial findings. The possible small left anterior medullary infarct on MRI of January 27, [address] CT. 2. Irregularity of the intracranial portion of the left vertebral artery due to atherosclerosis. Severe stenosis of the mid intracranial portion of left vertebral artery with age indeterminate occlusion of the distal left vertebral artery. 3. Tiny 3 mm saccular aneurysm arising from the posterior aspect of the mid basilar artery. ACT 112: Negative or not required by law. Electronically signed by: Perez Barrera M.D. 01/28/2025 9:06 AM Neck CTA 01/28/25 07:32 CT angio neck with con CLINICAL HISTORY: 49 years-old Male with stroke. Acute stroke like symptoms COMPARISON STUDY: CTA head of same day, brain MR 01/27/2025 TECHNIQUE: Following the IV administration of 120 mL of Optiray, CT angiogram of the neck was performed from the aortic arch to the skull base. Images are reviewed in the axial, sagittal, and coronal planes. 3-D MIPS images are created and assessed. IV contrast was administered without complication. All measurements were calculated based on NASCET criteria. A dose lowering technique was utilized adhering to the principles of ALARA. CT DOSE: 1093.1 mGy.cm FINDINGS: Three-vessel morphology of the thoracic aortic arch. There is patency of the innominate and image subclavian arteries. The common carotid arteries are widely patent. Atherosclerosis of the carotid bulbs causes less than 50% stenosis bilaterally. Calcified plaque at the origin of the right vertebral artery causes 60% stenosis. The right vertebral artery is dominant. Age indeterminate occlusion involves the V4 segment left vertebral artery secondary to atherosclerosis on image 331 series 7. Moderate stenosis of the V4 segment right vertebral artery on image 340 series 7. 3 mm saccular aneurysm involves the posterior wall of the mid basilar artery in image 371. No pneumothorax. Lung apices are clear. Unremarkable soft tissues. No acute fracture. IMPRESSION: 1. Age-indeterminate occlusion of the V4 segment left vertebral artery. 2. Areas of moderate stenosis noted within the right vertebral artery. 3. 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 4. Patent carotid arteries. ACT 112: Negative or not required by law. The above report was generated using voice recognition software. It may contain grammatical, syntax or spelling errors. Electronically signed by: Vijay Nuñez M.D. 01/28/2025 9:14 AM MRI OF THE BRAIN COMBO CLINICAL HISTORY: Right arm and leg weakness. Evaluate for stroke. COMPARISON STUDY: Head CT performed earlier today. TECHNIQUE: MRI of the brain was performed utilizing various T1 and T2-weighted sequences in the axial, sagittal, and coronal planes. Contrast-enhanced sequences were acquired following the administration of 9 cc of Gadavist. FINDINGS: There is a small 6 mm hyperintense focus within the left anterior medulla on image 6 of 23 of the diffusion-weighted sequence. No corresponding signal abnormality is identified within the remainder of the pulsing sequences. Artifact is favored however a small acute medullary infarct could appear similar. Diffusion-weighted sequence is otherwise normal. Ventricular system is unremarkable. Basal cisterns are patent. No acute intracranial hemorrhage, midline shift or mass effect is present. There is no intracranial mass or pathologic enhancement. No parenchymal signal abnormality is present. There is moderate ethmoid and frontal sinus mucosal thickening. A small amount of fluid within the right mastoid air cells is present. IMPRESSION: 1. Small 6 mm hyperintense focus within the left anterior medulla on the diffusion-weighted sequence without corresponding signal abnormality on the remainder of the pulsing sequences. Artifact is favored however a small acute left medullary infarct could appear similar. The findings could be correlated with clinical evidence for a medullary infarct. 2. Otherwise, unremarkable MRI of the brain. ACT 112: Negative or not required by law. Medications Administered Current Inpatient Medications Acetaminophen (Acetaminophen 325 Mg Tab) 650 mg PO Q6H PRN PRN Reason: Temp > 38 C Stop: 02/26/25 13:08 Last Admin: 01/27/25 22:44 Dose: 650 mg Aspirin (Aspirin 81 Mg Ectab) 81 mg PO QAM [facility] Stop: 02/27/25 08:59 Last Admin: 01/28/25 07:41 Dose: 81 mg Atorvastatin Calcium (At[facility]vastatin 40 Mg Tab) [facility] [place] Stop: 02/26/25 12:29 Last Admin: 01/28/25 07:41 Dose: 80 mg Clopidogrel Bisulfate (Clopidogrel Bisulfate 75 Mg Tab) 75 mg PO QAM [facility] Stop: 02/27/25 08:59 Last Admin: 01/28/25 07:41 Dose: 75 mg Heparin Sodium (Porcine) (Heparin Sod 5,000 Unit/0.5 Ml Vial) 5,000 units SQ Q8 [facility] Stop: 02/26/25 13:59 Last Admin: 01/28/25 06:18 Dose: 5,000 units Sodium Chloride (Nss) 1,000 mls @ 125 mls/hr IV .Q8H [facility] Stop: 01/29/25 12:44 Last Admin: 01/28/25 08:45 Dose: 125 mls/hr Losartan Potassium (Losartan Potassium 25 Mg Tab) 25 mg PO QAM [facility] Stop: 02/27/25 08:59 Last Admin: 01/28/25 07:41 Dose: 25 mg Miscellaneous Information (Pharmacist Discharge Med Rec Consult) 1 each N/A UD PRN PRN Reason: Consult Stop: 02/26/25 13:08 PG Care Time/CCT Total # of Minutes Spent Total Time Spent with Patient: Total time spent is greater than 50% in coordination of care (as documented) at patient's floor/unit and/or counseling patient: Coding Level of Care Code 87226 SUB INP/OBS CARE 2/35MIN Diagnoses Acute CVA (cerebrovascular accident) I63.9 Right sided numbness R20.0 Time Spent (min) 35
[2025-01-28] MEDS: SUCRALFATE 1 GM TAB PO STA (14:48)
--- NOTE | 2025-01-28 17:04 | Neurology Consultation ---
Date of Consultation January 28, 2025 Assessment & Plan (1) Acute CVA (cerebrovascular accident): (2) Vertebral artery occlusion: (3) Basilar artery aneurysm: Plan 49-year-old male presenting with a probable acute to subacute left medullary infarct in the context of an age-indeterminate left vertebral artery occlusion. 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 Patient's stroke occurs in the context of suboptimally controlled diabetes mellitus and nicotine vaping. Clinically, he has a very mild right hemiparesis and appears to have subtle weakness of the left lower facial musculature (likely ipsilateral supranuclear facial weakness). He does not appear to have hemiataxia. No dysarthria. Ocular motility intact. Would continue with dual antiplatelet therapy, aspirin 81 mg/day and Plavix 75 mg/day for 3 weeks. We then discontinue Plavix in favor of aspirin monotherapy. I agree with high intensity statin therapy for the time being. Long-term LDL goal, 70 or less. The dosage may be further adjusted at the discretion of his PCP. Continue with blood pressure management per stroke protocol. Consider obtaining 30-day mobile cardiac outpatient telemetry. Nicotine vaping cessation may need additional stressing. Consultations with PT/OT. No further immediate recommendations. Patient may follow-up with me or an [facility] in neurology clinic in 2 to 3 weeks after discharge. Please call with any questions. History of Present Illness Reason for Consultation: stroke Requesting Physician: Roberto Carlos Attending Physician: Travis Azevedo DO History of Present Illness The patient is a 49-year-old male with a chief complaint of right sided numbness and weakness that began 3 nights ago. His symptoms have been persistent and have affected his gait, balance, facility of the right hand. He denies experiencing any weakness or numbness of the face, no diplopia or vision loss, no difficulty swallowing, no change in speech. Past medical history notable for suboptimally controlled type 2 diabetes mellitus and nicotine vaping. He does not take any antiplatelet medication or blood thinners, he takes a low-dose of atorvastatin. I did independently review the brain MRI completed yesterday which reveals a probable acute or subacute infarct within the left anterior medulla. CT angiography of the head and neck revealed an occluded left vertebral artery and an incidental 3 mm saccular aneurysm of the basilar artery. Allergies Allergy/AdvReac Type Severity Reaction Status Date / Time No Known Allergies Allergy Mild Verified 01/27/25 10:31 Home Medications Medication Instructions Recorded Confirmed Type [id number] 250 2 tab PO BID PRN Migraine Headache 07/23/22 01/27/25 History mg-250 mg-65 mg tablet (Excedrin Migraine) pen needle, diabetic 32 gauge x #100 ea 10/24/22 12/06/24 Rx 5/32" (BD Maritza 2nd Gen Pen Needle) blood sugar diagnostic (OneTouch #100 ea 01/29/24 12/06/24 Rx Verio test strips) lancets 33 gauge #100 ea 01/29/24 12/06/24 Rx metformin 500 mg tablet,extended 1,000 mg (2 x 500 mg) PO BID #120 10/29/24 01/27/25 Rx release 24 hr tabs atorvastatin 10 mg tablet 10 mg PO QAM 01/27/25 01/27/25 History losartan 25 mg tablet 25 mg PO QAM 01/27/25 01/27/25 History triamcinolone acetonide 0.1 % 1 applic topical BID PRN Other 01/27/25 01/27/25 History topical ointment Patient History Medical History Proliferative diabetic retinopathy associated with type 2 diabetes mellitus Macular edema due to type 2 diabetes mellitus Injury of left knee Surgical History History of hernia surgery Family History Mother Coronary heart disease Myocardial infarction Grandmother (Maternal) Myocardial infarction Aunt Myocardial infarction Denies family history of Ovarian cancer Prostate cancer Breast cancer Colorectal cancer Social History Smoking Status: Current every day smoker Tobacco Type: E-cigarettes / Vaping Age Started Using Tobacco: 17; Cigarettes Per Day: 1/2 pack/day; Second Hand Exposure: No; Do You Dip or Chew Tobacco: No; Hx Alcohol Use: Yes Alcohol type: beer Hx Substance Use: No Preferred Language: Irish Communication Ability: Effective Traffic Sergeant Required: No Beliefs That Will Affect Care: None marital status: Single Current Living Situation: Family Current Living Situation Comment: Lives at home with step father current occupational status: employed current occupation: [employer] How many Children do You have: 1 Feels Safe at Home: Yes Childhood Exposure to Second-Hand Smoke: Yes Diet: diabetic and low carbohydrate caffeine: Yes Dental Care, Regularly: No Physical Activity Frequency: Daily Seatbelt Use: always Sunscreen Use: No Assistive Devices: None Review of Systems Constitutional: no fever Eyes: no blind spots, no diplopia and no eye pain Ear, Nose, Mouth, Throat: no hearing loss Respiratory: no cough and no dyspnea Cardiovascular: no palpitations Gastrointestinal: no nausea and no vomiting Genitourinary: no dysuria Musculoskeletal: no myalgia Integumentary: no rash Neurologic: as per Subjective / HPI, + gait abnormality, + localized weakness and + loss of sensation; no abnormal movements, no headache(s), no abnormal speech, no confusion and no memory loss Psychiatric: no depression and no anxiety Hematologic / Lymphatic: no easy bleeding and no easy bruising Exam (Neuro) Constitutional: well developed and well nourished; no acute distress Eyes: normal visual acosta by confrontation, PERRL and EOM intact bilaterally; no nystagmus Neurologic: Oriented to:: Person, Place and Time Memory: Short Term Intact and Remote Intact Attention: Span Intact and Concentration Intact Speech Fluency: negative Dysarthria or Dysfluency Speech Aphasia: negative Aphasia Fund of Knowledge: Current Events, Past History and Vocabulary Cranial Nerves: Normal II, III, IV, , V, VIII, IX, X, XI and XII; Abnorm VII (Slight weakness of the left lower facial musculature) Motor Strength: Hemiparesis (Mild) Laterality: Right Motor Tone: Normal Lower Extremities and Normal Upper Extremities Muscle Bulk/Involuntary Movements: No Involuntary Movements; negative Muscle Atrophy Sensation: Light Touch Intact, Pain/Temperature Intact and Proprioception Intact Coordination: Finger-Nose Abnormal Laterality: Right and Heel-Fields Abnormal Laterality: Right; negative Dysdiadochokinesia Deep Tendon Reflexes: Rt Triceps: 2+, Lt Triceps: 2+, Rt Biceps: 2+, Lt Biceps: 2+, Rt Brachioradialis: 2+, Lt Brachioradialis: 2+, Rt Patellar: 2+, Lt Patellar: 2+, Rt Ankle: 1+ and Lt Ankle: 1+ Special Tests: Babinski Present (Right) Details: Patient exhibits a fixed on the right with arm roll, decreased facility of the right hand, slightly diminished initiation of movement for the right lower limb Results & Data Vital Signs (Past 12 Hours) Vital Signs Temp Pulse Pulse Resp BP Pulse Ox O2 Del Method 01/28/25 14:50 36.6 C 67 18 139/79 95 Room Air 01/28/25 13:06 65 01/28/25 10:53 36.7 C 71 18 141/81 H 97 Room Air 01/28/25 07:25 55 L 01/28/25 07:15 36.6 C 62 16 137/79 96 Room Air Laboratory Results WBC 5.54, hemoglobin 14.2, platelet count 187, sodium 137, potassium 4.2, creatinine 0.75, glucose 115, hemoglobin A1c 8.2, calcium 8.4, triglycerides 176, cholesterol 133, LDL 68, HDL 30 Diagnostic Findings Echocardiogram, normal left ventricular systolic function, no regional wall motion abnormalities, EF 55 to 60%, no significant valvular pathology, borderline left atrial enlargement, no interatrial shunt. Electrocardiogram, normal sinus rhythm, 81 bpm. Coding Level of Care Code 15697 INT INP/OBS CARE /75MIN Diagnoses Acute CVA (cerebrovascular accident) I63.9 Vertebral artery occlusion I65.09 Basilar artery aneurysm I72.5 Time Spent (min) 80 Comment Total time includes patient contact, chart review, counseling, note preparation
[2025-01-29 08:31] LABS: Hematocrit (blood only) 46.6 % (42.0-52.0); Hemoglobin 15.3 g/dl (14.0-18.0); Immature Granulocytes # (auto) 0.01 K/uL (0.01-0.20); Immature Granulocytes % (auto) 0.2 %; Mean Corpuscular Hemoglobin 26.7 pg (25.0-34.0); Mean Corpuscular Volume 81.5 fL (80.0-100.0); Platelet Count 197 K/uL (130-400); RDW Standard Deviation 37.8 fL (36.4-46.3); Red Blood Count 5.72 M/uL (4.70-6.10); White Blood Count 5.37 K/ul (4.8-10.8)
[2025-01-29 08:49] LABS: Anion Gap 9.0 (3-11); Blood Urea Nitrogen 11.0 mg/dl (6-23); Calcium 8.6 mg/dl (8.6-10.3); Carbon Dioxide 24.0 mmol/L (21-32); Chloride 105.0 mmol/L (98-107); Creatinine Clr Calc Pharmacy 132.1 ml/min; Glucose 125.0 mg/dl (70-99(Fasting)); Potassium 3.7 mmol/L (3.5-5.1); Sodium 138.0 mmol/L (136-145)
--- NOTE | 2025-01-29 15:29 | XRay Report ---
Technique: 5 views of the cervical spine are submitted for review Findings: The cervical vertebrae are in normal alignment with no listhesis seen. No fracture is identified. No focal osseous lesion is evident. No prevertebral soft tissue swelling is noted. There is disc space narrowing and degenerative spur formation at C5-6 and C6-7. There is right C3-4 and bilateral C4-5 through C6-7 neural foramen narrowing due to uncovertebral osteoarthritis. This may affect the exiting nerve roots Impression: Multilevel degenerative disc disease and osteoarthritis Electronically signed by Jasper Croft 01-29-2025 3:29 PM
[2025-01-29] MEDS ORDERED: GLUCOSE 10 TAB/TUBE PO PRN (19:10)
[2025-01-29] MEDS ORDERED: GLUCAGON FOR INJ 1 MG VIAL SQ PRN (19:10)
[2025-01-29] MEDS ORDERED: GLUCOSE 40% GEL 15 GM TUBE PO PRN (19:10)
[2025-01-29] MEDS ORDERED: DEXTROSE 50% 50 ML SYRINGE IV PRN (19:10)
[2025-01-29] MEDS ORDERED: CARBOHYDRATES FOR HYPOGLYCEMIA PO PRN (19:10)
--- NOTE | 2025-01-29 19:13 | Hospitalist Progress Note ---
Date of Service January 29, 2025 Assessment & Plan (1) Acute CVA (cerebrovascular accident): Plan: Mr. Delfino Mike is a 49 yo male with PMh of diabetes, smoking (vaper), alcohol use disorder, neuropathy he's was having numbness (right side) on 01/26/2025 morning, he's also mentioned right leg unsteadiness and knee buckling sensation he's continue to has the right side numbness and came to our ED on 01/27 his brain MRI concern for 6mm focus in the left anterior medulla his CTA concern for age indeterminated occluson of v4 Segment of left vertebral artery area of moderate stenosis within right vertebral artery 3mm saccular aneurysm of basilar artery he will be admitted for acute CVA on :20noon, he's mentioned that his right side numbness improved, his is AAox3 on 01/28/2025, he mentioned ongoing intermittent right leg weakness, instability, also has intermittent right arm numbness he will required ongoing IV fluid, aspirin, plavix, permissive HTN 1. acute CVA, , right side numbness, right leg inability 2. age indeterminate occluson of v4 segment of left vertebral artery 3. moderate stenosis within right vertebral artery 4. 3mm saccular aneurysm of basilar artery 5. hx of diabetes 6. tobacco use disorder 7. alcohol use disorder acute stroke he's has ongoing right leg weakness, instability and intermittent tingling of right arm he's will need plavix, aspirin lipitor dose increased 80mg ongoing permissive HTN, IV fluid hold his ELENITA-I - cervical spine shows multi level degenerative disc disease with OA age indeterminate occlusion of v4 segment of left vertebral artery moderate stenosis within right vertebral artery 3mm saccular aneurysm of basilar artery neurology consult DM II HA1c: 8.2 insulin sliding scale ordered hypoglycemic protocol in place smoking smoking cessation discussed risk of and explained explained alcohol cessation discussed, risk of liver injury explained. he will need repeat LFT with higher dose of lipitor we discussed that he's overdue for colonoscopy code status: full code (2) Right sided numbness: Admission and Anticipated Discharge Date Admission Date: January 27, 2025 Subjective Pt c/o increasing numbness and tingling this AM that improved as the day progressed Review of Systems Review of Systems: Comprehensive ROS completed and is otherwise negative. Physical Exam Physical Exam: Gen: no acute distress, lying in bed comfortable HEENT: NC/AT, MMM Lungs: nonlabored breathing, CTAB CVS: s1s2nl, RRR Abd: nl bowel sounds, soft, NT / ND : no castellano Ext: no edema Neuro: AAOx3, RUE weakness noted and diminished sensation Psych: calm, cooperative Results & Data Results & Data Vital Signs (Past 12 Hours) Vital Signs Temp Pulse Pulse Resp BP Pulse Ox O2 Del Method 01/29/25 15:35 36.6 C 73 18 152/89 H 92 Room Air 01/29/25 11:04 75 177/105 H 94 Room Air 01/29/25 11:03 69 171/93 H 93 Room Air 01/29/25 07:24 36.6 C 69 18 164/91 H 93 Room Air 01/29/25 07:18 59 L PG Care Time/CCT Total # of Minutes Spent Total Time Spent with Patient: Total time spent is greater than 50% in coordination of care (as documented) at patient's floor/unit and/or counseling patient: Coding Level of Care Code 46845 SUB INP/OBS CARE 3/50MIN Diagnoses Acute CVA (cerebrovascular accident) I63.9 Right sided numbness R20.0
[2025-01-29] MEDS: INSULIN ASPART PER UNIT CHARGE SC SCH (21:08)
[2025-01-30 07:00] LABS: Hematocrit (blood only) 47.1 % (42.0-52.0); Hemoglobin 15.2 g/dl (14.0-18.0); Immature Granulocytes # (auto) 0.02 K/uL (0.01-0.20); Immature Granulocytes % (auto) 0.4 %; Mean Corpuscular Hemoglobin 26.8 pg (25.0-34.0); Mean Corpuscular Volume 82.9 fL (80.0-100.0); Platelet Count 202 K/uL (130-400); RDW Standard Deviation 38.8 fL (36.4-46.3); Red Blood Count 5.68 M/uL (4.70-6.10); White Blood Count 5.64 K/ul (4.8-10.8)
[2025-01-30 07:19] LABS: Anion Gap 7.0 (3-11); Blood Urea Nitrogen 12.0 mg/dl (6-23); Calcium 8.8 mg/dl (8.6-10.3); Carbon Dioxide 26.0 mmol/L (21-32); Chloride 105.0 mmol/L (98-107); Creatinine Clr Calc Pharmacy 133.9 ml/min; Glucose 148.0 mg/dl (70-99(Fasting)); Magnesium 2.1 mg/dl (1.7-2.4); Potassium 3.9 mmol/L (3.5-5.1); Sodium 138.0 mmol/L (136-145)
--- NOTE | 2025-01-30 10:22 | Hospitalist Progress Note ---
Date of Service January 30, 2025 Assessment & Plan (1) Acute CVA (cerebrovascular accident): (2) Right sided numbness: Plan Mr. Delfino Mike is a 49 yo male with PMh of diabetes, smoking (vaper), alcohol use disorder, neuropathy he's was having numbness (right side) on 01/26/2025 morning, he's also mentioned right leg unsteadiness and knee buckling sensation he's continue to has the right side numbness and came to our ED on 01/27 his brain MRI concern for 6mm focus in the left anterior medulla his CTA concern for age indeterminated occluson of v4 Segment of left vertebral artery area of moderate stenosis within right vertebral artery 3mm saccular aneurysm of basilar artery he will be admitted for acute CVA on :20noon, he's mentioned that his right side numbness improved, his is AAox3 on 01/28/2025, he mentioned ongoing intermittent right leg weakness, instabilit y, also has intermittent right arm numbness he will required ongoing IV fluid, aspirin, plavix, permissive HTN 1. acute CVA, , right side numbness, right leg inability 2. age indeterminate occluson of v4 segment of left vertebral artery 3. moderate stenosis within right vertebral artery 4. 3mm saccular aneurysm of basilar artery 5. hx of diabetes 6. tobacco use disorder 7. alcohol use disorder acute stroke - he's has ongoing right leg weakness, instability and intermittent tingling of right arm - cont plavix, aspirin x3 weeks (to be completed on 02/16/25), then Aspirin alone as monotherapy (initiate on 02/17) - lipitor dose increased 80mg - pt now on Losartan - cervical spine shows multi level degenerative disc disease with OA age indeterminate occlusion of v4 segment of left vertebral artery moderate stenosis within right vertebral artery 3mm saccular aneurysm of basilar artery - neurology recs appreciated - will need outpatient follow up in neurology clinic in 2-3 weeks DM II HA1c: 8.2 insulin sliding scale ordered hypoglycemic protocol in place smoking smoking cessation discussed risk of and explained explained alcohol cessation discussed, risk of liver injury explained. we discussed that he's overdue for colonoscopy code status: full code Dispo: Pt medically ready for discharge, pending rehab placement Admission and Anticipated Discharge Date Admission Date: January 27, 2025 Subjective No acute events overnight Pt states he notices some improvement in his RUE sensation Review of Systems Review of Systems: Comprehensive ROS completed and is otherwise negative. Physical Exam Physical Exam: Gen: no acute distress, lying in bed comfortable HEENT: NC/AT, MMM Lungs: nonlabored breathing, CTAB CVS: s1s2nl, RRR Abd: nl bowel sounds, soft, NT / ND : no castellano Ext: no edema Neuro: AAOx3, RUE weakness noted and diminished sensation Psych: calm, cooperative Results & Data Results & Data Vital Signs (Past 12 Hours) Vital Signs Temp Pulse Pulse Resp BP Pulse Ox O2 Del Method 01/30/25 07:16 59 L 01/30/25 07:08 36.8 C 61 18 169/93 H 94 Room Air 01/30/25 02:32 36.8 C 65 18 139/83 94 Room Air 01/29/25 22:38 36.5 C 63 18 153/85 H 96 Room Air PG Care Time/CCT Total # of Minutes Spent Total Time Spent with Patient: Total time spent is greater than 50% in coordination of care (as documented) at patient's floor/unit and/or counseling patient: Coding Level of Care Code 14582 SUB INP/OBS CARE 2/35MIN Diagnoses Acute CVA (cerebrovascular accident) I63.9 Right sided numbness R20.0
[2025-01-30] MEDS: NICOTINE 21 MG/24 HR TDSY TD SCH (20:00)
[2025-01-31 04:06] VITALS: RESP 18
[2025-01-31 06:29] LABS: Hematocrit (blood only) 46.4 % (42.0-52.0); Hemoglobin 15.7 g/dl (14.0-18.0); Mean Corpuscular Hemoglobin 27.6 pg (25.0-34.0); Mean Corpuscular Volume 81.5 fL (80.0-100.0); Platelet Count 200 K/uL (130-400); RDW Standard Deviation 37.5 fL (36.4-46.3); Red Blood Count 5.69 M/uL (4.70-6.10); White Blood Count 6.41 K/ul (4.8-10.8)
[2025-01-31 06:53] LABS: Anion Gap 7.0 (3-11); Blood Urea Nitrogen 14.0 mg/dl (6-23); Calcium 8.8 mg/dl (8.6-10.3); Carbon Dioxide 27.0 mmol/L (21-32); Chloride 105.0 mmol/L (98-107); Creatinine Clr Calc Pharmacy 116.4 ml/min; Glucose 126.0 mg/dl (70-99(Fasting)); Magnesium 2.2 mg/dl (1.7-2.4); Potassium 4.5 mmol/L (3.5-5.1); Sodium 139.0 mmol/L (136-145)
[2025-01-31] MEDS: REMOVE NICODERM PATCH SCH (08:01)
--- NOTE | 2025-01-31 08:50 | Hospitalist Progress Note ---
Date of Service January 31, 2025 Assessment & Plan (1) Acute CVA (cerebrovascular accident): (2) Right sided numbness: Plan Mr. Delfino Mike is a 49 yo male with PMh of diabetes, smoking (vaper), alcohol use disorder, neuropathy he's was having numbness (right side) on 01/26/2025 morning, he's also mentioned right leg unsteadiness and knee buckling sensation he's continue to has the right side numbness and came to our ED on 01/27 his brain MRI concern for 6mm focus in the left anterior medulla his CTA concern for age indeterminated occluson of v4 Segment of left vertebral artery area of moderate stenosis within right vertebral artery 3mm saccular aneurysm of basilar artery he will be admitted for acute CVA on :20noon, he's mentioned that his right side numbness improved, his is AAox3 on 01/28/2025, he mentioned ongoing intermittent right leg weakness, instabilit y, also has intermittent right arm numbness he will required ongoing IV fluid, aspirin, plavix, permissive HTN #acute stroke - he's has ongoing right leg weakness, instability and intermittent tingling of right arm - cont plavix, aspirin x3 weeks (to be completed on 02/16/25), then Aspirin alone as monotherapy (initiate on 02/17) - lipitor dose increased 80mg - pt now on Losartan - cervical spine xr shows multi level degenerative disc disease with OA #age indeterminate occlusion of v4 segment of left vertebral artery #moderate stenosis within right vertebral artery #3mm saccular aneurysm of basilar artery - neurology recs appreciated - will need outpatient follow up in neurology clinic in 2-3 weeks #DM II - HA1c: 8.2 - insulin sliding scale ordered - hypoglycemic protocol in place #smoking - smoking cessation discussed - risk of and explained explained - alcohol cessation discussed, risk of liver injury explained. - it was discussed previously that he's overdue for colonoscopy- follow up PCP code status: full code Dispo: Pt medically ready for discharge, pending rehab placement Admission and Anticipated Discharge Date Admission Date: January 27, 2025 Subjective no acute events no new complaints Review of Systems Review of Systems: Comprehensive ROS completed and is otherwise negative. Physical Exam Physical Exam: Gen: no acute distress, lying in bed comfortable HEENT: NC/AT, MMM Lungs: nonlabored breathing, CTAB CVS: s1s2nl, RRR Abd: nl bowel sounds, soft, NT / ND : no castellano Ext: no edema Neuro: AAOx3, RUE weakness noted and diminished sensation Psych: calm, cooperative Results & Data Results & Data Vital Signs (Past 12 Hours) Vital Signs Temp Pulse Pulse Resp BP Pulse Ox O2 Del Method 01/31/25 07:19 36.6 C 59 L 18 156/92 H 95 Room Air 01/31/25 03:19 36.6 C 73 18 132/80 96 Room Air 01/30/25 23:12 36.3 C L 65 20 142/78 H 94 Room Air 01/30/25 22:00 59 L PG Care Time/CCT Total # of Minutes Spent Total Time Spent with Patient: Total time spent is greater than 50% in coordination of care (as documented) at patient's floor/unit and/or counseling patient: Coding Level of Care Code 80226 SUB INP/OBS CARE 05/15MIN Diagnoses Acute CVA (cerebrovascular accident) I63.9 Right sided numbness R20.0
--- NOTE | 2025-01-31 09:07 | Pharmacy Report ---
- Date of Service January 31, 2025 - Pharmacy CVA/TIA Medication Review Medications to Prevent Stroke handout has been added to the patients discharge packet. Antiplatelet(s) * aspirin 81 mg PO qAM + clopidogrel 75 mg PO daily x 3 weeks, then aspirin monotherapy Cholesterol * High intensity statin: atorvastatin 80 mg daily DVT Prophylaxis * Heparin SQ Therapeutic Anticoagulation * No history of Afib/Aflutter noted Type 2 Diabetes * Patient has T2DM, but per Dr. Linares, a diabetes medication with proven CVD benefit will be deferred to their outpatient provider due to familiarity with risks/benefits of such therapies. "Medications to prevent stroke" handout has already been added to the patient's discharge packet, which instructs the patient to follow up with their outpatient provider to evaluate which diabetes medication with proven CVD benefit is best for them
[2025-02-01] MEDS: INFLUENZA VACC TS2025-26(6m+)/PF (IIV3) 0.5mL Syr IM ONE (10:14)
[2025-02-01] MEDS: PNEUMOCOCCAL VACCINE (PCV20) 20-VAL CONJ-DIP CRM/PF 0.5 ML SYR IM ONE (10:14)
--- NOTE | 2025-02-01 16:35 | Hospitalist Progress Note ---
Date of Service February 01, 2025 Assessment & Plan (1) Acute CVA (cerebrovascular accident): (2) Right sided numbness: Plan Mr. Delfino Mike is a 49 yo male with PMh of diabetes, smoking (vaper), alcohol use disorder, neuropathy he's was having numbness (right side) on 01/26/2025 morning, he's also mentioned right leg unsteadiness and knee buckling sensation he's continue to has the right side numbness and came to our ED on 01/27 his brain MRI concern for 6mm focus in the left anterior medulla his CTA concern for age indeterminated occluson of v4 Segment of left vertebral artery area of moderate stenosis within right vertebral artery 3mm saccular aneurysm of basilar artery he will be admitted for acute CVA on :20noon, he's mentioned that his right side numbness improved, his is AAox3 on 01/28/2025, he mentioned ongoing intermittent right leg weakness, instabilit y, also has intermittent right arm numbness he will required ongoing IV fluid, aspirin, plavix, permissive HTN #acute stroke - he's has ongoing right leg weakness, instability and intermittent tingling of right arm - cont plavix, aspirin x3 weeks (to be completed on 02/16/25), then Aspirin alone as monotherapy (initiate on 02/17) - lipitor dose increased 80mg - pt now on Losartan - cervical spine xr shows multi level degenerative disc disease with OA #age indeterminate occlusion of v4 segment of left vertebral artery #moderate stenosis within right vertebral artery #3mm saccular aneurysm of basilar artery - neurology recs appreciated - will need outpatient follow up in neurology clinic in 2-3 weeks #DM II - HA1c: 8.2 - insulin sliding scale ordered - hypoglycemic protocol in place #smoking - smoking cessation discussed - risk of and explained explained - alcohol cessation discussed, risk of liver injury explained. - it was discussed previously that he's overdue for colonoscopy- follow up PCP code status: full code Dispo: Pt medically ready for discharge, pending rehab placement Scheduled P2P for 02/02 at 10am, please call [phone] OPT [facility], need pt's , zip code ([id number]), and ) Dr. Albright from insurance will make two calls (hospital main number provided). Admission and Anticipated Discharge Date Admission Date: January 27, 2025 Subjective no acute events no new complaints Review of Systems Review of Systems: Comprehensive ROS completed and is otherwise negative. Physical Exam Physical Exam: Gen: no acute distress, lying in bed comfortable HEENT: NC/AT, MMM Lungs: nonlabored breathing, CTAB CVS: s1s2nl, RRR Abd: nl bowel sounds, soft, NT / ND : no castellano Ext: no edema Neuro: AAOx3, RUE weakness noted and diminished sensation Psych: calm, cooperative Results & Data Results & Data Vital Signs (Past 12 Hours) Vital Signs Temp Pulse Pulse Resp BP Pulse Ox O2 Del Method 02/01/25 15:52 36.5 C 66 18 159/92 H 94 Room Air 02/01/25 14:35 73 02/01/25 10:57 36.8 C 73 18 146/83 H 93 Room Air 02/01/25 08:00 Room Air 02/01/25 07:31 36.6 C 63 18 164/91 H 95 Room Air 02/01/25 07:02 58 L PG Care Time/CCT Total # of Minutes Spent Total Time Spent with Patient: Total time spent is greater than 50% in coordination of care (as documented) at patient's floor/unit and/or counseling patient: Coding Level of Care Code 30172 SUB INP/OBS CARE 2/35MIN Diagnoses Acute CVA (cerebrovascular accident) I63.9 Right sided numbness R20.0
--- NOTE | 2025-02-02 11:17 | CT Scan Report ---
CT SCAN OF THE BRAIN WITHOUT IV CONTRAST CLINICAL HISTORY: Progressive right upper and lower extremity weakness. COMPARISON STUDY: CT of the brain dated 01/28/2025. TECHNIQUE: Unenhanced CT scan of the brain is performed from the vertex to the skull base. Images are reviewed in the axial, sagittal, and coronal planes. A dose lowering technique was utilized adherin g to the principles of ALARA. CT DOSE: 625.8 mGy.cm FINDINGS: Brain parenchyma: There is a small evolving lacunar infarct in the anterior aspect of the left medull a, best seen on axial image #6 and sagittal image #45. There is no hemorrhage, mass effect, or eviden ce of acute territorial ischemia by CT criteria. Bullard-white matter differentiation is preserved. No e xtra-axial fluid collection is seen. Ventricles, sulci, cisterns: Normal in configuration. Intracranial vasculature: There is atherosclerotic calcification of the cavernous carotid and vertebr al arteries. Calvarium: Unremarkable. Sinuses and mastoids: There is mild mucosal thickening within the frontal, ethmoid, sphenoid, and max illary sinuses. The mastoid air cells are well pneumatized. Orbits: The bony orbits are grossly intact. IMPRESSION: 1. There is a small evolving lacunar infarct within the left anterior medulla, which corresponds to t he abnormality seen on the 01/27/2025 MRI. 2. There is no no hemorrhage or mass effect. No additional findings are suspicious for acute territor ial ischemia by CT criteria. ACT 112: Negative or not required by law. Electronically signed by: Delfino Gee M.D. 02/02/2025 11:16 AM
[2025-02-02 11:57] VITALS: BP 128/78; TEMP 98.1; O2SAT 95
--- NOTE | 2025-02-02 13:06 | Magnetic Resonance Report ---
MR brain wo con CLINICAL HISTORY: requested by neurology, worsening RUE weakness COMPARISON STUDY: Head CT earlier today and MRI of 01/27/2025 FINDINGS: There is an 8 mm area of restricted diffusion at the left anterior medulla, mildly increase d in size. There is associated increased FLAIR signal intensity. No other evidence of acute infarctio n seen. No mass effect, midline shift, or hydrocephalus. IMPRESSION: Acute to recent subacute infarction at the left anterior medulla, mildly increased in si ze. ACT 112: Negative or not required by law. Electronically signed by: Aleksandr Kerns M.D. 02/02/2025 1:05 PM
[2025-02-02] MEDS ORDERED: STROKE PATIENT DISCHARGE STA (13:51)
--- NOTE | 2025-02-02 13:58 | Magnetic Resonance Report ---
MRI OF THE CERVICAL SPINE WITHOUT IV CONTRAST CLINICAL HISTORY: Progressive right upper and lower extremity weakness. COMPARISON STUDY: CT angiogram of the neck dated 01/28/2025. Cervical spine x-ray dated 01/29/2025. M RI of the brain performed the same day 02/02/2025. TECHNIQUE: MRI of the cervical spine was performed utilizing various T1 and T2-weighted sequences in axial and sagittal planes. IV contrast was not administered for this examination. The examination is degraded by motion artifact. FINDINGS: Cervical spine: Vertebral body height and alignment are maintained throughout the cervical spine. The re is straightening of the cervical lordosis. Anterior osteophytes are seen throughout. The atlantode ns articulation is maintained. No destructive bony lesion is seen. The spinous processes appear intac t. There is chronic degenerative endplate change at C6-C7 with mild endplate edema. Intervertebral discs: Disc desiccation is seen throughout the cervical spine. There is mild loss of h eight at C5-C6 and C6-C7. Spinal cord: The cervical cord is normal in morphology and signal intensity. C2-C3: The central canal is clear. Facet arthropathy causes mild left neural foraminal stenosis. The right neural foramen is patent. C3-C4: The central canal is clear. Facet arthropathy causes mild right neural foraminal narrowing. Le ft neural foramen is patent. C4-C5: A posterior disc osteophyte complex mildly effaces the ventral subarachnoid space. Uncovertebr al facet arthropathy cause mild left neural foraminal narrowing. The right neural foramen is patent. C5-C6: A posterior discussed by complex effaces the ventral subarachnoid space. There is a left later al disc bulge. In conjunction with facet arthropathy there is moderate to severe left neural foramina l stenosis. Only mild neural foraminal narrowing is seen on the right. C6-C7: A posterior disc osteophyte complex effaces the ventral subarachnoid space. Uncovertebral face t arthropathy cause [id number] left neural foraminal stenosis. The right neural foramen is rajan nt. C7-T1: Unremarkable. Soft tissues: The prevertebral and paraspinous soft tissues are within normal limits. Brain parenchyma: A subacute lacunar infarct is again seen within the left anterior aspect of the med darron on sagittal image #10. IMPRESSION: 1. Multilevel cervical spondylosis as above. See discussion for detailed level by level analysis. 2. The cervical cord is normal in morphology and signal intensity. 3. A left medullary infarct is partially visualized. This was better assessed on today's brain MRI. 4. No destructive bony process is seen. Electronically signed by: Delfino Gee M.D. 02/02/2025 1:57 PM
[2025-02-02 14:24] VITALS: PULSE 71
== END 2025-02-02 15:56 | DRG 65 ==
LOC: ED 08:43 → 2S 12:38 → SUATTDRO 12:38 → 2S 22:50